=== PATIENT | male | born 1940 | race Caucasian/White ===

== ENCOUNTER 2021-09-24 08:40 | Emergency (ER) | payer MEDICARE, SELFPAY ==
[2021-09-24 08:50] VITALS: BP 156/94; PULSE 89; RESP 19; TEMP 36.1; BMI 29.4
[2021-09-24] MEDS: Oxymetazoline HCl 0.05 % Nasal 15 ML SPRAY 2 SPRAY NOSTRIL-B (09:18)
[2021-09-24] MEDS: Tranexamic Acid 1,000 MG in 0.9 % Sodium Chloride 250 ML 32.5 MG IV (09:19)
--- NOTE | 2021-09-24 09:21 | PC.NURSE ---
txa for nose bleed use by mago laura
--- NOTE | 2021-09-24 09:29 | ED.EPISTAXIS ---
History of Present Illness General Chief Complaint: Epistaxis Stated Complaint: Epistaxis Time Seen by Provider: 09/24/21 09:06 Source: patient Mode of arrival: ambulatory Limitations: no limitations History of Present Illness HPI Narrative: 81-year-old male on blood thinners/Eliquis presents to ED for nose bleed. Patient states this morning woke up and sneezed and it started bleeding from his left nares. Patient had another nosebleed earlier in the week that resolved on its own. Patient denies any recent head trauma, headache, rectal bleeding, coughing up blood, vomiting blood. Patient states his room is very humid Location: Yes left naris Related Data Allergies Allergy/AdvReac Type Severity Reaction Status Date / Time No Known Allergies Allergy Unverified 07/16/20 14:33 [No Known Allergies*] Review of Systems Review of Systems: Yes all other systems are reviewed and are negative Constitutional: Constitutional: Reports as per HPI and Reports no additional constitutional complaints Eyes: Eyes: Reports as per HPI and Reports no additional eye complaints ENT: Reports system reviewed and no additional complaints, except as documented, Reports as per HPI and Reports epistaxis (Left nares) Cardiovascular: Cardiovascular: Reports as per HPI and Reports no additional cardiovascular complaints Respiratory: Respiratory: Reports as per HPI and Reports no additional respiratory complaints Gastrointestinal: Gastrointestinal: Reports as per HPI and Reports no additional gastrointestinal complaints Musculoskeletal: Musculoskeletal: Reports no additional musculoskeletal complaints and Reports as per HPI Integumentary/Breasts: Skin/Breast: Reports system reviewed and no additional complaints, except as docu and Reports as per HPI Psychiatric: Psychiatric: Reports no additional psychiatric complaints [facility] Past Medical History Medical History (Updated 09/24/21 @ 11:24 by RITA Howard) Diabetes Surgical History (Updated 09/24/21 @ 08:52 by Onofre Muse) H/O heart artery stent Social History Social History Alcohol intake: never Smoked in Last 30 Days: No Use of substances other than those prescribed or required for medical reasons: No Advance Directives: Yes Advance Directives Information Provided: Yes Advance Directives on File: No Physical Exam Vital Signs: Vital Signs: Last Vital Signs Temp 97 F 09/24/21 08:50 Pulse 89 09/24/21 08:50 Resp 19 09/24/21 08:50 BP 156/94 H 09/24/21 08:50 Body Mass Index 29.4 Const: General: cooperative, healthy appearing, comfortable, no acute distress, well developed, alert, awake and Physically active Orientation/consciousness: patient oriented x3 HENMT: Head: Yes normal to inspection, Yes No palpable skull fracture present, Yes normocephalic and Yes atraumatic Ears: hearing grossly normal bilaterally and external ears normal General nose exam: Epistaxis present on the left Eyes: General: appearance normal, both eyes and all related structures Neck: Neck: Yes normal visual inspection, Yes full ROM, Yes no lymphadenopathy, Yes no meningeal signs, Yes trachea midline, Yes supple, No anterior neck swelling and No tender Chest: Chest palpation & inspection: normal inspection of the chest and normal palpation of entire chest wall Resp: Effort & Inspection: normal respiratory effort and able to speak in complete sentences Auscultation: clear to auscultation bilaterally Cardio: Jugular venous distension: no JVD Heart sounds: S1 normal heart sound present and S2 normal heart sound present GI: Inspection: Yes normal to inspection and No abdominal wall ecchymosis Palpation (GI): Soft to palpation, not firm, nontender, no guarding and not rigid : General: No CVA tenderness and Yes no CVA tenderness Back/Spine/Pelvis: Back: no CVA tenderness, No CVA tenderness and No back tenderness Skin: General skin exam: no rashes or lesions noted and elasticity normal Neuro: General: patient oriented x3, gait normal, no meningeal signs and CN's II-XI intact bilaterally Cranial nerves: Yes CN's II-XII intact bilaterally Extrem: General: Yes normal to inspection and Yes full ROM Psych: Appearance: grossly normal, well kempt and not disheveled Course Course Course Narrative: Bleeding only from left neck. Patient blew nose. Three Afrin sprays into left neck. Tranexmic acid sprayed into nares and placed in gauzed and than placed in nare. Reevaluation(s) Reevaluation #1: Patient's blood work came back normal. After initial treatment with Afrin and also Tranexamic Acid spread into nose and placing gauze into nares patient still had some bleeding with some slight blood going back of throat. 30 minute there was no improvement. Dr. Wise came evaluated and use silver nitrate for anterior bleeding. After evaluation patient was still bleeding and other Tranexamic was placed as recommend by Dr. Wise. On re-evaluation patient no longer has bleeding and patient would like to be discharged and no longer wants to wait to see if bleeding will come back. Patient given Afrin bottle from the ED to spray twice a day to nares. Time: 11:22 MDM - Epistaxis MDM Narrative Medical decision making narrative: Epistaxis Lab Data Result diagrams: 09/24/21 10:00 09/24/21 10:00 Labs: Lab Results 09/24/21 09/24/21 09/24/21 Range/Units 10:00 10:00 10:00 WBC 13.4 H (4.8-10.8) X10*3/uL RBC 4.96 (4.60-5.80) X10*6/uL Hgb 14.5 (14.0-18.0) g/dl Hct 44.0 (42.0-52.0) % MCV 88.7 (80.0-98.0) fL MCH 29.2 (27.0-33.0) pg MCHC 33.0 (31.0-36.0) g/dl RDW 13.3 (11.0-16.0) % Plt Count 226 (160-400) X10*3/uL MPV 11.0 (9.4-12.4) fL Immature Gran % (Auto) 0.8 H (0.0-0.4) % Neut % (Auto) 76.4 H (45-73) % Lymph % (Auto) 12.0 L (20-40) % [place] % (Auto) 9.3 (2-11) % Eos % (Auto) 0.8 (0-4) % Baso % (Auto) 0.7 (0-2) % Lymph # (Auto) 1.6 (1.2-4.9) X10*3/uL [place] # (Auto) 1.3 H (0.1-1.2) X10*3/uL Eos # (Auto) 0.1 (0.0-0.4) X10*3/uL Baso # (Auto) 0.1 (0.0-0.2) X10*3/uL Abs Immat Gran (auto) 0.11 H (0.00-0.03) X10*3/uL Absolute Neuts (auto) 10.3 H (2.0-8.3) x10*3/uL Absolute Nucleated RBC 0.000 (0.0-0.012) X10*3/uL Nucleated RBC % (auto) 0.0 (0.0-0.2) /100WBC PT 13.6 H (9.9-13.0) SEC INR 1.2 H (0.9-1.1) APTT 35.7 (24.1-38.0) SEC Sodium 134 L (135-145) mmol/L Potassium 4.6 (3.3-5.1) mmol/L Chloride 102 (96-108) mmol/L Carbon Dioxide 22 (22-29) mmol/L Anion Gap 15 (12-20) BUN 24 H (9-16) mg/dL Creatinine 1.10 (0.5-1.4) mg/dL Estim Creat Clear Calc 60.3 Estimated GFR > 60 Random Glucose 182 H (60-115) mg/dL Calcium 9.6 (8.4-10.2) mg/dL Total Bilirubin 0.3 (0.0-1.0) mg/dL AST 17 (5-37) U/L ALT 24 (0-40) U/L Alkaline Phosphatase 75 (39-117) U/L Total Protein 6.6 (6.5-8.0) g/dL Albumin 4.0 (3.5-5.0) g/dL Discharge Plan Discharge Clinical Impression: Epistaxis Patient Disposition: Home, Self-Care Instructions: Nosebleed (ED) Additional Instructions: [place] Afrin ( bottle given by You in the ED) twice a day into left nare. Do not sneeze. Please follow-up with your primary care provider. Return to ED immediately if bleeding occurs, shortness of breath, weakness, dizziness, or any other concerning symptoms. labs came back normal. Referrals: Rommel Figueroa MD [Primary Care Provider] - 2 days (Left epistaxis) Canelo Quiñonez [Physician] - 2 days (Resolved epistaxis.) Discharge Date/Time: 09/24/21 11:36 Print Language: Tamazight
[2021-09-24 10:06] LABS: Basophils Absolute Auto 0.1 X10*3/uL (0.0-0.2); Basophils Percent Auto 0.7 % (0-2); Eosinophils Absolute Auto 0.1 X10*3/uL (0.0-0.4); Eosinophils Percent Auto 0.8 % (0-4); Hemoglobin 14.5 g/dl (14.0-18.0); Imm Gran Abs Auto 0.11 X10*3/uL (0.00-0.03); Imm Gran Pct Auto 0.8 % (0.0-0.4); Lymphocytes Absolute Auto 1.6 X10*3/uL (1.2-4.9); Mean Corpuscular Hemoglobin 29.2 pg (27.0-33.0); Mean Corpuscular Volume 88.7 fL (80.0-98.0); Monocytes Absolute Auto 1.3 X10*3/uL (0.1-1.2); Monocytes Percent Auto 9.3 % (2-11); Neutrophils Absolute Auto 10.3 x10*3/uL (2.0-8.3); Neutrophils Percent Auto 76.4 % (45-73); Platelet Count 226 X10*3/uL (160-400); Red Blood Count 4.96 X10*6/uL (4.60-5.80); Red Cell Distribution Width 13.3 % (11.0-16.0); White Blood Count 13.4 X10*3/uL (4.8-10.8)
[2021-09-24 10:07] LABS: MANUAL DIFF FLAG NO
[2021-09-24 10:12] LABS: INTERNATIONAL NORM RATIO 1.2 (0.9-1.1); Prothrombin Time 13.6 SEC (9.9-13.0)
[2021-09-24 10:15] LABS: Partial Thromboplastin Time 35.7 SEC (24.1-38.0)
[2021-09-24] MEDS: Silver Nitrate Applicator STICK..EA. 1 APPL TOPICAL ×2 (10:28)
[2021-09-24 10:31] LABS: Alanine Aminotransferase 24 U/L (0-40); Alkaline Phosphatase 75 U/L (39-117); Anion Gap 15 (12-20); Aspartate Amino Transferase 17 U/L (5-37); Bilirubin Total 0.3 mg/dL (0.0-1.0); Blood Urea Nitrogen 24 mg/dL (9-16); Calcium 9.6 mg/dL (8.4-10.2); Carbon Dioxide 22 mmol/L (22-29); Chloride 102 mmol/L (96-108); Creatinine Clr Calc Pharmacy 60.3; Estimated Glomerular Filt Rate > 60; Glucose Random 182 mg/dL (60-115); Potassium 4.6 mmol/L (3.3-5.1); Sodium 134 mmol/L (135-145); Total Protein 6.6 g/dL (6.5-8.0)
== END 2021-09-24 11:36 | disposition home or self-care (01) ==
PROVIDERS: Physician Assistant; Emergency Provider Emergency Medicine; PCP Family Medicine
DX: R04.0 Epistaxis (principal); E11.9 Type 2 diabetes mellitus without complications
CPT/HCPCS: 30901; 36415; 80053; 85025; 85610; 85730; 99284

== ENCOUNTER 2022-01-02 05:22 | Emergency (ER) | payer MEDICARE, SELFPAY ==
--- NOTE | ~2022-01-02 | XR_ITS ---
EXAMINATION: XR SHOULDER, LEFT CLINICAL INFORMATION: Atraumatic pain COMPARISON: None TECHNIQUE: Four views of the left shoulder. FINDINGS: Glenohumeral alignment is anatomic with mild degenerative change. No acute fracture is seen. The acromioclavicular joint is intact with mild degenerative change. XR/XR shoulder LT min 2V IMPRESSION: Mild degenerative changes without acute findings.
[2022-01-02 05:26] VITALS: BP 153/78; PULSE 80; RESP 16; TEMP 36.4; BMI 29.4
[2022-01-02] MEDS: Oxymetazoline HCl 0.05 % Nasal 15 ML SPRAY 2 SPRAY NOSTRIL-B (05:36)
[2022-01-02 05:56] VITALS: PULSE 80; O2SAT 98
--- NOTE | 2022-01-02 05:56 | PC.NURSE ---
Assumed care of pt Pt states intermittent nosebleed since last . Pt was given a salve by ENT to keep nasal passage moist. Per pt, nosebleed started yesterday but did not stop when pt applied the salve. Pt currently still having active nosebleed on LT nare. Slow bleed. Pt medicated per DEC. Pressure applied. No bleeding noted at this time Will continue to monitor
--- NOTE | 2022-01-02 06:02 | ED.EPISTAXIS ---
History of Present Illness General Chief Complaint: Epistaxis Stated Complaint: Nose Bleed Time Seen by Provider: 01/02/22 05:27 Source: patient Mode of arrival: ambulatory History of Present Illness HPI Narrative: 81-year-old male who presents with epistaxis that started yesterday at approximately 15:00. Patient is on Eliquis for atrial fibrillation and also describes left arm and shoulder pain. Related Data Allergies Allergy/AdvReac Type Severity Reaction Status Date / Time No Known Allergies Allergy Unverified 07/16/20 14:33 [No Known Allergies*] Review of Systems Review of Systems: Pertinent positives and negatives as stated in HPI 10 point review of systems is otherwise negative. PMFSH Past Medical History Source: nursing notes reviewed Medical History Diabetes Surgical History H/O heart artery stent Social History Social History Alcohol intake: never Advance Directives: No Physical Exam Vital Signs: Vital Signs: Last Vital Signs Temp 97.5 F 01/02/22 05:26 Pulse 80 01/02/22 05:56 Resp 16 01/02/22 05:26 BP 153/78 H 01/02/22 05:26 Pulse Ox 98 01/02/22 05:56 BMI result Body Mass Index 29.4 VITAL SIGNS: Reviewed. GENERAL: Well developed, well nourished, in no acute distress. HEAD: Normocephalic/atraumatic EYES: PERRLA, EOMI EARS: Ext canals without abnormality NOSE: Nares patent bilateral, but stigmata of bleeding in the left nostril OROPHARYNX: no oral lesions noted, posterior pharynx clear LUNGS: Normal breath sounds. No adventitious sounds or accessory muscle use. SpO2<98> CARDIOVASCULAR: Regular rate and rhythm without noted murmurs ABDOMEN: Soft, non-tender, non-distended with bowel sounds. NEUROLOGIC: Alert and oriented x 4. Strength and sensation to light touch were grossly intact x 4. Course Course Course Narrative: 81-year-old male with history and clinical presentation consistent with epistaxis. Patient states he has been using the humidifier but has limited the salve that was provided by ENT only when he gets nose bleeds. I discussed with the patient that he needs to use the salve every day and that he can only use the Afrin for acute bleeds. Will obtain x-ray of left shoulder and provide patient with medication. X-ray negative for acute findings other than arthritis. On re-evaluation patient's epistaxis has stopped, no rhino rocket placed. Discharge Plan Discharge Clinical Impression: Epistaxis Patient Disposition: Home, Self-Care Instructions: Nosebleed (ED) Additional Instructions: 1. Recommend that you use the self every day to moisten your nasal mucosa. Please follow the recommendations from your ENT doctor. 2. You have been provided with the nasal spray which should only be used for sudden nose bleeds. You will treat this with 2 sprays and then holding pressure for 5 minutes and then reassess. If your nose continues to bleed then use an additional 2 sprays and hold pressure for another 5 minutes. If this does not help then you should come back to the emergency room. 3. Follow-up with your primary care provider and/or ENT specialist. Return to the ER for worsening symptoms. Referrals: Rommel Figueroa MD [Primary Care Provider] - 2 days
[2022-01-02] MEDS: Lidocaine 4 % Patch ADH..PATCH 1 PATCH TRANSDERMA (06:20)
== END 2022-01-02 07:19 | disposition home or self-care (01) ==
PROVIDERS: Emergency Provider Student in an Organized Health Care Education/Training Program; PCP Family Medicine
DX: R04.0 Epistaxis (principal); I48.91 Unspecified atrial fibrillation; M25.512 Pain in left shoulder; Z79.01 Long term (current) use of anticoagulants
CPT/HCPCS: 73030; 99283

== ENCOUNTER 2023-11-23 08:38 | Outpatient (AMB) | payer MEDICARE, SELFPAY ==
--- OUTSIDE RECORDS SUMMARY | 2023-11-23 08:40 | XMS_ITS | Continuity of Care Document ---
Author Name Unknown Organization [facility] [place] Address [address] [place] [address]- Care Team Providers Care Rodbuster Name Role Phone Carolina LEIVA, Rommel Doshi Primary Care Physician [phone] Encounter [facility] [place] Date(s): 06/08/21 - 07/08/21 [facility] Adult [address] [place] [address]- Attending Physician: AdmSaniya calle Admitting Physician: AdmtrSaniya Referring Physician: Admtr, Ar8 Allergies, Adverse Reactions, Alerts Substance Reaction Severity Status NKA Active Immunizations Given and Recorded Vaccine Date Status Refusal Reason SARS-CoV-2 (COVID-19) mRNA BNT-162b2 vac 01/29/21 Given SARS-CoV-2 (COVID-19) mRNA BNT-162b2 vac 01/08/21 Given influenza virus vaccine, inactivated 08/20/20 Give n pneumococcal 13-valent vaccine 1 08/03/18 Given tetanus/diphtheria/pertussis, acel(Tdap) 10/30/14 Recorded 1Result Comment: [08/03/2018] [facility] [id number] Medications acetaminophen 325 mg oral tablet 650 mg, By Mouth, Every 6 hours, May take OTC, follow directions on bottle, Refills 0, Maintenance,12/08/20 6:42:00 EST, Partial fill upon patient request if the prescription is for a schedule II opioid drug. Start Date: 12/08/20 Status: Ordered apixaban 2.5 mg oral tablet 1 tablet = 2.5 mg, By Mouth, 2 times a day, For the first 7 days post-op SAVAGE, 0 Refills, Maintenance, 06/23/21 12:45:00 EDT, Tablet, Partial fill upon patient request if the prescription is for a schedule II opioid drug. Start Date: 06/23/21 Status: Ordered Atorvastatin Tablet 80, mg, By Mouth, Daily at bedtime, 0, 2, 0, 2, 08/17/07 11:11:59, ADS OPPTHS, 144 Start Date: 08/17/07 Stop Date: 11/15/07 Status: Ordered Azopt 1% ophthalmic suspension 1 drops, Eyes, Both, 2 times a day, # 5 mL, 0 Refills, Maintenance, 12/07/20 5:44:00 EST, Suspension, Partial fill upon patient request if the prescription is for a schedule II opioid drug. Start Date: 12/07/20 Status: Ordered docusate sodium 100 mg oral capsule 100 mg, 1, capsule, By Mouth, 2 times a day, hold for loose stool, # 60 capsule, Refills 0, Tot. Refills 0, Maintenance, 12/08/20 6:44:00 EST, Route to Pharmacy Electronically, [facility], Partial fill upon patient request if the prescri... Start Date: 12/08/20 Stop Date: 01/07/21 Status: Ordered Eliquis 5 mg oral tablet 1 tablet = 5 mg, By Mouth, 2 times a day, # 60 tablet, 0 Refills, Maintenance, 05/03/18 13:46:16 EDT, Tablet Start Date: 05/03/18 Status: Ordered FREESTYLE LITE BLOOD GLUCOSE STRIPS FREESTYLE LITE BLOOD GLUCOSE STRIPS, See Instructions, # 200 Unknown, 0 Refills, Maintenance, USE DIRECTED TO TEST TWICE DAILY, 178, cm, 01/18/21 8:54:00 EDT, Height, 97.3, kg, 12/07/20 5:27:00 EST, Dry Weight Start Date: 02/03/21 Status: Ordered Freestyle Lite Lancets See Instructions, # 200 each, Refills 2, Tot. Refills 2, Maintenance, Test blood glucose twice daily, Dx: Type 2 DM, 03/30/21 12:51:00 EDT, Compound, 178, cm, 01/18/21 8:54:00 EDT, Height, 97.3, kg, 12/07/20 5:27:00 EST, Dry Weight Start Date: 03/30/21 Status: Ordered Freestyle Lite Monitor See Instructions, # 1 each, Maintenance, Monitor blood glucose twice daily Dx: Type 2 DM, 09/18/18 12:38:00 EST, Compound Start Date: 09/18/18 Status: Ordered Freestyle Lite Test Strips See Instructions, # 200 each, Refills 2, Tot. Refills 2, Maintenance, Monitor blood glucose twice daily, Dx: Type 2 DM, 10/14/19 16:37:30 EST, Compound, 178, cm, 04/18/19 7:00:17 EDT, Height Start Date: 10/14/19 Status: Ordered glipiZIDE 2.5 mg oral tablet, extended release See Instructions, TAKE 1 TABLET BY MOUTH DAILY WITH BREAKFAST, # 30 tablet, 2 Refills, Maintenance,[facility] #[id number], 178, cm, 06/08/21 8:06:00 EDT, Height, 97.3, kg, 12/07/20 5:27:00 EST,Dry Weight Start Date: 06/13/21 Status: Ordered hydrochlorothiazide 25 mg oral tablet 25 mg, 1, tablet, By Mouth, Daily, # 30 tablet, Refills 0, Maintenance, 02/01/18 13:19:27 EDT Start Date: 02/01/18 Status: Ordered lisinopril 20 mg oral tablet 20 mg, 1, tablet, By Mouth, Daily, # 90 tablet, Refills 1, Tot. Refills 1, Maintenance, 07/07/21 8:43:00 EDT, Route to Pharmacy Electronically, [facility] #[id number], Partial fill upon patient request if the prescription is for a schedule II opi... Start Date: 07/07/21 Status: Ordered Maalox Plus Liquid 30 mL, By Mouth, Every 4 hours, PRN Other, Heartburn, 0 Refills, Maintenance, 12/08/20 6:43:00 EST,Suspension, Partial fill upon patient request if the prescription is for a schedule II opioid drug. Start Date: 12/08/20 Status: Ordered metFORMIN 500 mg oral tablet 1 tablet = 500 mg, By Mouth, 2 times a day, # 180 tablet, 1 Refills, Maintenance, 04/24/21 11:53:00EDT, Tablet, [facility] #[id number], 178, cm, 01/18/21 8:54:00 EDT, Height, 97.3, kg, 215:27:00 EST, Dry Weight Start Date: 04/24/21 Status: Ordered MiraLax Powder 1 pack/packet = 17 Gm, By Mouth, Daily, PRN Constipation, 0 Refills, Maintenance, 12/08/20 6:45:00 EST, Powder, Partial fill upon patient request if the prescription is for a schedule II opioid drug. Start Date: 12/08/20 Status: Ordered MOM Liquid 30 mL, By Mouth, Daily, PRN Constipation, 0 Refills, Maintenance, 12/08/20 6:45:00 EST, Suspension,Partial fill upon patient request if the prescription is for a schedule II opioid drug. Start Date: 12/08/20 Status: Ordered Rhopressa 0.02% ophthalmic solution 1 drops, Eyes, Both, Daily in PM, # 2.5 mL, 0 Refills, Maintenance, 12/07/20 5:45:00 EST, Solution,Partial fill upon patient request if the prescription is for a schedule II opioid drug. Start Date: 12/07/20 Status: Ordered senna 187 mg oral tablet 1 tablet = 8.6 mg, By Mouth, Daily at bedtime, PRN as needed for constipation, 0 Refills, Maintenance, 06/23/21 12:45:00 EDT, Tablet, Partial fill upon patient request if the prescription is for a schedule II opioid drug. 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
--- OUTSIDE RECORDS SUMMARY | 2023-11-23 08:40 | XMS_ITS | Continuity of Care Document ---
Author Name Unknown Organization [facility] Address [address] [place] [address]- Care Team Providers Care Climate Change Risk Assessor Name Role Phone Rommel Figueroa MD Primary Care Physician [phone] Encounter [facility] [place] AC[facility] R [id number] Date(s): 11/02/20 - 11/09/20 [facility] Adult [address] [place] [address]- Attending Physician: Rommel Figueroa MD Allergies, Adverse Reactions, Alerts Substance Reaction Severity Status NKA Active Immunizations Given and Recorded Vaccine Date Status Refusal Reason influenza virus vaccine, inactivated 08/20/20 Give n pneumococcal 13-valent vaccine 1 08/03/18 Given tetanus/diphtheria/pertussis, acel(Tdap) 10/30/14 Recorded 1Result Comment: [08/03/2018] [facility] [id number] Medications Aspirin Tablet 81, mg, By Mouth, Daily, 0, 2, 0, 2, 08/17/07 11:12:02, ADS OPPTHS, [id number] Start Date: 08/17/07 Stop Date: 11/15/07 Status: Ordered Atorvastatin Tablet 80, mg, By Mouth, Daily at bedtime, 0, 2, 0, 2, 08/17/07 11:11:59, ADS OPPTHS, 144 Start Date: 08/17/07 Stop Date: 11/15/07 Status: Ordered Eliquis 5 mg oral tablet 1 tablet = 5 mg, By Mouth, 2 times a day, # 60 tablet, 0 Refills, Maintenance, 05/03/18 13:46:16 EDT, Tablet Start Date: 05/03/18 Status: Ordered Freestyle Lite Lancets See Instructions, # 200 each, Refills 2, Tot. Refills 2, Maintenance, Test blood glucose twice daily, Dx: Type 2 DM, 10/21/19 15:38:00 EST, Compound, 178, cm, 04/18/19 7:00:00 EDT, Height Start Date: 10/21/19 Status: Ordered Freestyle Lite Monitor See Instructions, [...] glipiZIDE 2.5 mg oral tablet, extended release 1 tablet = 2.5 mg, By Mouth, Daily, with breakfast, # 30 tablet, 2 Refills, Maintenance, 11/09/20 7:56:00 EST, ER Tablet, [facility] #[id number], 178, cm, 11/02/20 8:16:00 EST, Height Start Date: 11/09/20 Status: Ordered hydrochlorothiazide 25 mg oral tablet 25 mg, 1, tablet, By Mouth, Daily, # 30 tablet, Refills 0, Maintenance, 02/01/18 13:19:27 EDT Start Date: 02/01/18 Status: Ordered lisinopril 10 mg oral tablet 10 mg, 1, tablet, By Mouth, Daily, Refills 0, Maintenance, 11/15/16 17:09:25 Start Date: 11/15/16 Status: Ordered metFORMIN 500 mg oral tablet 1 tablet = 500 mg, By Mouth, 2 times a day, # 180 tablet, 3 Refills, Maintenance, 04/24/20 10:57:00EDT, Tablet, [facility] #[id number], 178, cm, 04/24/20 10:32:00 EDT, Height Start Date: 04/24/20 Status: Ordered Timolol 0.5% Ophth 1, drops, Eyes, Both, Daily, Refills 0, Maintenance, 11/15/16 17:09:47, Ophth Solution Start Date: 11/15/16 Status: Ordered Travatan Z 0.004% ophthalmic solution 1 drops, Eyes, Both, Daily at bedtime, 0 Refills, Maintenance, 11/15/16 17:10:42 Start Date: 11/15/16 Status: Ordered Problem List Condition Effective Dates Status Health Status Inform ant Atrial fibrillation(Confirmed) Active 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 Essential hypertension(Confirmed) Active Glaucoma(Confirmed) Active Mixed hyperlipidemia(Confirmed) Active OA (osteoarthritis) of hip, right(Confirmed) Active Diabetes mellitus type 2(Confirmed) Active Vital Signs Most recent to oldest [Reference Range]: 1 Height 178.00 cm (11/02/20 8:16 AM) Weight 101.4 kg (11/02/20 8:16 AM) Oxygen Saturation [94-100 %] 96 % (11/02/20 8:16 AM) Pulse Rate [55-90 bpm] 54 bpm *L* (11/02/20 8:16 AM) Body Mass Index [18.5-24.99] 32 *>HHI* (11/02/20 8:16 AM) Blood Pressure [90-138/55-84 mm Hg] 130/ 70mm Hg (11/02/20 8:16 AM) Temperature [96.8-100.4 DegF] 97.6 DegF (11/02/20 8:16 AM) Mode of Delivery (Oxygen) Room air (11/02/20 8:16 AM) Blood pressure sites Arm, left (11/02/20 8:16 AM) Temperature Route Oral (11/02/20 8:16 AM) Weight Obtained Via Standing scale (11/02/20 8:16 AM) Social History Social History Type Response Smoking Status Never smoker entered on: 11/15/16 Sex
--- OUTSIDE RECORDS SUMMARY | 2023-11-23 08:40 | XMS_ITS | Continuity of Care Document ---
Author Name Unknown Organization [facility] [place] Address [address] [place] [address]- Care Team Providers Care Advertising Display Rotator Name Role Phone Rommel Figueroa MD Primary Care Physician Encounter [facility] [place] Date(s): 07/30/19 - 11/27/19 [facility] Adult [address] [place] [address]- [facility] Attending Physician: Rommel Figueroa MD Allergies, Adverse Reactions, Alerts Substance Reaction Severity Status NKA Active Immunizations Given and Recorded Vaccine Date Status Refusal Reason pneumococcal 13-valent vaccine 1 08/03/18 Given tetanus/diphtheria/pertussis, acel(Tdap) 10/30/14 Recorded 1Result Comment: [08/03/2018] [facility] 0542-8372-75 Medications amLODIPine 5 mg oral tablet 5 mg, 1, tablet, By Mouth, Daily, # 30 tablet, Refills 5, Tot. Refills 5, Maintenance, 12/29/17 13:45:15, Route to Pharmacy Electronically, [id number], [facility] [id number] Start Date: 12/29/17 Status: Ordered Aspirin Tablet 81, mg, By Mouth, Daily, 0, 2, 0, 2, 08/17/07 11:12:02, ADS OPPTHS, [id number] Start Date: 08/17/07 Stop Date: 11/15/07 Status: [...] EDT, Height Start Date: 10/14/19 Status: Ordered hydrochlorothiazide 25 mg oral tablet 25 mg, 1, tablet, By Mouth, Daily, # 30 tablet, Refills 0, Maintenance, 02/01/18 13:19:27 EDT Start Date: 02/01/18 Status: Ordered lisinopril 10 mg oral tablet 10 mg, 1, tablet, By Mouth, Daily, Refills 0, Maintenance, 11/15/16 17:09:25 Start Date: 11/15/16 Status: Ordered metFORMIN 500 mg oral tablet 1 tablet = 500 mg, By Mouth, Daily at bedtime, # 30 tablet, 2 Refills, Soft Stop, 11/13/19 10:21:00EST, [id number], 178, cm, 10/28/19 7:17:00 EST, Height Start Date: 11/13/19 Status: Ordered Timolol 0.5% Ophth 1, drops, Eyes, Both, Daily, Refills 0, Maintenance, 11/15/16 17:09:47, Ophth Solution Start Date: 11/15/16 Status: Ordered Travatan Z 0.004% ophthalmic solution 1 drops, Eyes, Both, Daily at bedtime, 0 Refills, Maintenance, 11/15/16 17:10:42 Start Date: 11/15/16 Status: Ordered Problem List Condition Effective Dates Status Health Status Inform ant Atrial fibrillation(Confirmed) Active 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
--- OUTSIDE RECORDS SUMMARY | 2023-11-23 08:40 | XMS_ITS | Continuity of Care Document ---
Author Name Unknown Organization [facility] Sal[facility] [place] Address [address] [place] [address]- Care Team Providers Care Textile Machinery Instructor Name Role Phone Carolina LEIVA, Rommel Doshi Primary Care Physician [phone] [place] [facility] [place]/21 [facility] Adult [address] [place] [address]- Attending Physician: Rommel Figueroa MD Referring Physician: Niranjan Goodrich MD Allergies, Adverse Reactions, Alerts Substance Reaction Severity Status NKA Active Immunizations Given and Recorded Vaccine Date Status Refusal Reason SARS-CoV-2 (COVID-19) mRNA BNT-162b2 vac 01/29/21 Given SARS-CoV-2 (COVID-19) mRNA BNT-162b2 vac 01/08/21 Given influenza virus vaccine, inactivated 08/20/20 Give n pneumococcal 13-valent vaccine 1 08/03/18 Given tetanus/diphtheria/pertussis, acel(Tdap) 10/30/14 Recorded 1Result Comment: [08/03/2018] [facility] 7438-2653-33 Medications acetaminophen 325 mg oral tablet 650 [...] 12/08/20 6:44:00 EST, Route to Pharmacy Electronically, [facility], Partial fill upon patient request if the [...] WITH BREAKFAST, # 30 tablet, 2 Refills, Maintenance,[facility] #[id number], 178, cm, 06/08/21 8:06:00 EDT, Height, 97.3, kg, 12/07/20 5:27:00 EST,Dry Weight Start Date: 06/13/21 Status: Ordered hydrochlorothiazide 25 mg oral tablet 25 mg, 1, tablet, By Mouth, Daily, # 30 tablet, Refills 0, Maintenance, 02/01/18 13:19:27 EDT Start Date: 02/01/18 Status: Ordered lisinopril 20 mg oral tablet 20 mg, 1, tablet, By Mouth, Daily, # 90 tablet, Refills 0, Tot. Refills 0, Maintenance, 05/11/21 7:55:00 EDT, Do Not Route, Partial fill upon patient request if the prescription is for a schedule II opioid drug. 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
--- OUTSIDE RECORDS SUMMARY | 2023-11-23 08:40 | XMS_ITS | Continuity of Care Document ---
Author Name Unknown Organization [facility] Sal[facility] [place] Address [address] [place] [address]- Care Team Providers Care Mis Specialist Name Role Phone Carolina LEIVA, Rommel Doshi Primary Care Physician Encounter [facility] [place] Date(s): 11/26/20 - 12/26/20 [facility] Adult [address] [place] [address]- Attending Physician: AdmSaniya calle Admitting Physician: Admtr, Ar8 Referring Physician: Admtr, Ar8 Allergies, Adverse Reactions, Alerts Substance Reaction Severity Status NKA Active Immunizations Given and Recorded Vaccine Date Status Refusal Reason influenza virus vaccine, inactivated 08/20/20 Give n pneumococcal 13-valent vaccine 1 08/03/18 Given tetanus/diphtheria/pertussis, acel(Tdap) 10/30/14 Recorded 1Result Comment: [08/03/2018] [facility] [id number] Medications acetaminophen 325 mg oral tablet 650 mg, By Mouth, Every 6 hours, May take OTC, follow directions on bottle, Refills 0, Maintenance,12/08/20 6:42:00 EST, Partial fill upon patient request if the prescription is for a schedule II opioid drug. Start Date: 12/08/20 Status: Ordered Atorvastatin Tablet 80, mg, By [...] 12/08/20 6:44:00 EST, Route to Pharmacy Electronically, [facility], Partial fill upon patient request if the [...] Refills, Maintenance, 11/09/20 7:56:00 EST, ER Tablet, [facility][id number], 178, cm, 11/02/20 8:16:00 EST, Height Start Date: 11/09/20 Status: Ordered hydrochlorothiazide 25 mg oral tablet 25 mg, 1, tablet, By Mouth, Daily, # 30 tablet, Refills 0, Maintenance, 02/01/18 13:19:27 EDT Start Date: 02/01/18 Status: Ordered lisinopril 10 mg oral tablet 20 mg, 2, tablet, By Mouth, Daily, Refills 0, Maintenance, 11/15/16 17:09:25 EST Start Date: 11/15/16 Status: Ordered Maalox Plus Liquid 30 mL, [...] tablet, 3 Refills, Maintenance, 04/24/20 10:57:00EDT, Tablet, [facility][id number], 178, cm, 04/24/20 10:32:00 EDT, Height Start Date: 04/24/20 Status: Ordered MiraLax Powder 1 pack/packet = [...] opioid drug. Start Date: 12/08/20 Status: Ordered pantoprazole 40 mg oral delayed release tablet = 40 mg, By Mouth, Daily, 0 Refills, Maintenance, 12/08/20 6:45:00 EST, [facility] Tablet Start Date: 12/08/20 Status: Ordered Rhopressa 0.02% [...] as needed for constipation, 0 Refills, Maintenance, 12/08/20 6:45:00 EST, Tablet, Partial fill upon patient request if the prescription is for a schedule II opioid drug. Start Date: 12/08/20 Status: Ordered Timolol 0.5% Ophth 1, drops, Eyes, Both, Daily, Refills 0, Maintenance, 11/15/16 17:09:47, Ophth Solution Start Date: 11/15/16 Status: Ordered Travatan Z 0.004% ophthalmic solution 1 drops, Eyes, Both, Daily at bedtime, 0 Refills, Maintenance, 11/15/16 17:10:42 Start Date: 11/15/16 Status: Ordered warfarin 1 mg oral tablet See Instructions, Take 1-10 tablets by mouth daily as directed by HERMILA, # 150 tablet, 0 Refills, Maintenance, 12/08/20 6:47:00 EST, Tablet, [facility], Partial fill upon patient requestif the prescription is for a schedule II opioid nae... 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
--- OUTSIDE RECORDS SUMMARY | 2023-11-23 08:40 | XMS_ITS | Continuity of Care Document ---
Author Name Unknown Organization [facility] Sal[facility] [place] Address [address] [place] [address]- Care Team Providers Care Carpenter Cradle And Dolly Name Role Phone Rommel Figueroa MD Primary Care Physician [phone] Encounter [facility] [place] Date(s): 10/28/19 - 12/04/19 [facility] Adult [address] [place] [address]- [facility] Attending Physician: Rommel Figueroa MD Allergies, Adverse Reactions, Alerts Substance Reaction Severity Status NKA Active Immunizations Given and Recorded Vaccine Date Status Refusal Reason pneumococcal 13-valent vaccine 1 08/03/18 Given tetanus/diphtheria/pertussis, acel(Tdap) 10/30/14 Recorded 1Result Comment: [08/03/2018] [facility] 3058-4399-79 Medications amLODIPine 5 mg oral tablet 5 mg, 1, tablet, By Mouth, Daily, # 30 tablet, Refills 5, Tot. Refills 5, Maintenance, 12/29/17 13:45:15, Route to Pharmacy Electronically, [id number], [facility] [id number] Start Date: 12/29/17 Status: Ordered Aspirin Tablet 81, mg, By Mouth, Daily, 0, 2, 0, 2, 08/17/07 11:12:02, ADS OPPTHS, [id number] Start Date: 08/17/07 Stop Date: 11/15/07 Status: [...] tablet, 2 Refills, Soft Stop, 11/13/19 10:21:00EST, 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
--- OUTSIDE RECORDS SUMMARY | 2023-11-23 08:40 | XMS_ITS | Continuity of Care Document ---
Author Name Unknown Organization [facility] Salty [place] Address [address] [place] [address]- Care Team Providers Care Boat Wrapper Name Role Phone Carolina LEIVA, Rommel Doshi Primary Care Physician [place] [facility] [place]21 - 10/22/21 [facility] Adult [address] [place] [address]- Encounter Diagnosis Epistaxis(Discharge Diagnosis) - 10/17/21 Cough(Discharge Diagnosis) - 10/17/21 Attending Physician: Kassidy Phillip NP Allergies, Adverse Reactions, Alerts Substance Reaction Severity Status NKA Active Immunizations Given and Recorded Vaccine Date Status Refusal Reason SARS-CoV-2 (COVID-19) mRNA BNT-162b2 vac 01/29/21 Given SARS-CoV-2 (COVID-19) mRNA BNT-162b2 vac 01/08/21 Given influenza virus vaccine, inactivated 08/20/20 Give n pneumococcal 13-valent vaccine 1 08/03/18 Given tetanus/diphtheria/pertussis, acel(Tdap) 10/30/14 Recorded 1Result Comment: [08/03/2018] [facility] 5970-8035-46 Medications acetaminophen 325 mg oral tablet 650 [...] 12/08/20 6:44:00 EST, Route to Pharmacy Electronically, [facility], Partial fill upon patient request if the prescri... Start Date: 12/08/20 Stop Date: 01/07/21 Status: Ordered Eliquis 5 mg oral tablet 1 tablet = 5 mg, By Mouth, 2 times a day, # 60 tablet, 0 Refills, Maintenance, 05/03/18 13:46:16 EDT, Tablet Start Date: 05/03/18 Status: Ordered FREESTYLE LITE BLOOD GLUCOSE STRIPS FREESTYLE LITE BLOOD GLUCOSE STRIPS, See Instructions, # 200 Unknown, 1 Refills, USE DIRECTED TOTEST TWICE DAILY, 175.2, cm, 06/24/21 7:36:00 EDT, Height, 96.2, kg, 06/22/21 5:33:00 EDT, Dry Weight Start Date: 08/12/21 Status: Ordered FREESTYLE LITE BLOOD GLUCOSE STRIPS [...] MOUTH DAILY WITH BREAKFAST, # 30 tablet, 5 Refills, [facility][id number], 175.2, cm, 06/24/21 7:36:00 EDT, Height, 96.2, kg, 06/22/21 5:33:00 EDT, Dry Weight Start Date: 09/13/21 Status: Ordered hydrochlorothiazide 25 mg oral tablet 25 mg, 1, tablet, By Mouth, Daily, # 30 tablet, Refills 2, Tot. Refills 2, Maintenance, 09/06/21 4:56:00 EST, Route to Pharmacy Electronically, [facility][id number], Partial fill upon patient request if the prescription is for a schedule II opi... Start Date: 09/06/21 Status: Ordered lisinopril 20 mg oral tablet 20 mg, 1, tablet, By Mouth, Daily, # 90 tablet, Refills 1, Tot. 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
--- OUTSIDE RECORDS SUMMARY | 2023-11-23 08:40 | XMS_ITS | Continuity of Care Document ---
Author Name Unknown Organization [facility] Salty [place] Address [address] [place] [address]- Care Team Providers Care Broadcast Meteorologist Name Role Phone Carolina LEIVA, Rommel Doshi Primary Care Physician [phone] Encounter [facility] [place] Date(s): 10/28/19 - 11/04/19 [facility] Adult [address] [place] [address]- [facility] Encounter Diagnosis Atrial fibrillation(Discharge Diagnosis) - 10/28/19 Essential hypertension(Discharge Diagnosis) - 10/28/19 Mixed hyperlipidemia(Discharge Diagnosis) - 10/28/19 Uncontrolled type 2 diabetes mellitus(Discharge Diagnosis) - 10/28/19 Atherosclerotic heart disease of [place] coronary artery without angina pectoris (Discharge Diagnosis) - 10/28/19 Glaucoma(Discharge Diagnosis) - 10/28/19 Medicare annual wellness visit, initial(Discharge Diagnosis) - 10/28/19 Erectile dysfunction(Discharge Diagnosis) - 10/29/19 Attending Physician: Kassidy Phillip NP Referring Physician: Rommel Figueroa MD Allergies, Adverse Reactions, Alerts Substance Reaction Severity Status NKA Active Immunizations Given and Recorded Vaccine Date Status Refusal Reason pneumococcal 13-valent vaccine 1 08/03/18 Given tetanus/diphtheria/pertussis, acel(Tdap) 10/30/14 Recorded 1Result Comment: [08/03/2018] [facility] 8309-1459-68 Medications amLODIPine 5 mg oral tablet 5 mg, 1, tablet, By Mouth, Daily, # 30 tablet, Refills 5, Tot. Refills 5, Maintenance, 12/29/17 13:45:15, Route to Pharmacy Electronically, [id number], [facility] Start Date: 12/29/17 Status: Ordered Aspirin Tablet 81, mg, By Mouth, Daily, 0, 2, 0, 2, 08/17/07 11:12:02, ADS [facility], 1.29689b+[id number] Start Date: 08/17/07 Stop Date: 11/15/07 Status: Ordered Atorvastatin Tablet 80, mg, By Mouth, Daily at bedtime, 0, 2, 0, 2, 08/17/07 11:11:59, ADS [facility], 144 Start Date: 08/17/07 Stop Date: 11/15/07 [...] Mouth, Daily at bedtime, # 30 tablet, 1 Refills, Soft Stop, 09/12/19 16:02:19EST Start Date: 09/12/19 Status: Ordered Timolol 0.5% Ophth 1, drops, Eyes, Both, Daily, Refills 0, Maintenance, 11/15/16 17:09:47, Ophth Solution Start Date: 11/15/16 Status: Ordered Travatan Z 0.004% ophthalmic solution 1 drops, Eyes, Both, Daily at bedtime, 0 Refills, Maintenance, 11/15/16 17:10:42 Start Date: 11/15/16 Status: Ordered Problem List Condition Effective Dates Status Health Status Inform ant Atrial fibrillation(Confirmed) Active 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 Essential hypertension(Confirmed) Active Glaucoma(Confirmed) Active Mixed hyperlipidemia(Confirmed) Active Uncontrolled type 2 diabetes mellitus(Confirmed) Active Diagnosis Diagnosis Type Effective Dates Health Status Clinical Service Informant Atrial fibrillation Discharge Diagnosis 10/28/19 Essential hypertension Discharge Diagnosis 10/28/19 Mixed hyperlipidemia Discharge Diagnosis 10/28/19 Uncontrolled type 2 diabetes mellitus Discharge Diagnosis 10/28/19 Atherosclerotic heart disease of [place] coronary artery without angina pectoris Discharge Diagnosis 10/28/19 Glaucoma Discharge Diagnosis 10/28/19 Medicare annual wellness visit, initial Discharge Diagnosis 10/28/19 Erectile dysfunction Discharge Diagnosis 10/29/19 Vital Signs Most recent to oldest [Reference Range]: 1 Height 178.00 cm (10/28/19 7:17 AM) Weight 97.3 kg (10/28/19 7:17 AM) Oxygen Saturation [94-100 %] 98 % (10/28/19 7:17 AM) Pulse Rate [55-90 bpm] 74 bpm (10/28/19 7:17 AM) Body Mass Index [18.5-24.99] 30.71 *>HHI* (10/28/19 7:17 AM) Blood Pressure [90-138/55-84 mm Hg] 150/ 102mm Hg *H* (10/28/19 7:17 AM) Blood pressure sites Arm, left (10/28/19 7:17 AM) Weight Obtained Via Standing scale (10/28/19 7:17 AM) Social History Social History Type Response Smoking Status Never smoker entered on: 11/15/16 Sex
--- OUTSIDE RECORDS SUMMARY | 2023-11-23 08:40 | XMS_ITS | Continuity of Care Document ---
Author Name Unknown Organization [facility] Salty [place] Address [address] [place] [address]- Care Team Providers Care Cpr Instructor Name Role Phone Carolina LEIVA, Rommel Doshi Primary Care Physician Encounter [facility] [place] Date(s): 01/14/21 - 02/13/21 [facility] Adult [address] [place] [address]- Allergies, Adverse Reactions, Alerts Substance Reaction Severity Status NKA Active Immunizations Given and Recorded Vaccine Date Status Refusal Reason SARS-CoV-2 (COVID-19) mRNA BNT-162b2 vac 01/29/21 Given SARS-CoV-2 (COVID-19) mRNA BNT-162b2 vac 01/08/21 Given influenza virus vaccine, inactivated 08/20/20 Give n pneumococcal 13-valent vaccine 1 08/03/18 Given tetanus/diphtheria/pertussis, acel(Tdap) 10/30/14 Recorded 1Result Comment: [08/03/2018] [facility] [id number] Medications acetaminophen 325 mg oral tablet 650 [...] 12/08/20 6:44:00 EST, Route to Pharmacy Electronically, [facility], Partial fill upon patient request if [...] breakfast, # 30 tablet, 2 Refills, Maintenance, 01/12/21 16:30:00 EDT, ER Tablet, [facility]07771, 178, cm, 12/08/20 7:50:00 EST, Height, 97.3, kg, 12/07/20 5:27:00 EST, Dry Weight Start Date: 01/12/21 Status: Ordered hydrochlorothiazide 25 mg oral tablet [...] tablet, 3 Refills, Maintenance, 04/24/20 10:57:00EDT, Tablet, [facility]34059, 178, cm, 04/24/20 10:32:00 EDT, Height Start [...] 0 Refills, Maintenance, 12/08/20 6:47:00 EST, Tablet, [facility], Partial fill upon patient requestif the prescription is for a schedule II opioid nae... 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
--- OUTSIDE RECORDS SUMMARY | 2023-11-23 08:40 | XMS_ITS | Continuity of Care Document ---
Author Name Unknown Organization [facility] Salty [place] Address [address] [place] [address]- Care Team Providers Care Channel Program Manager Name Role Phone Rommel Figueroa MD Primary Care Physician [phone] Encounter [id number] Date(s): 06/08/21 - 06/15/21 [facility] Adult [address] [place] [address]- Attending Physician: Rommel Figueroa MD Allergies, Adverse Reactions, Alerts Substance Reaction Severity Status NKA Active Immunizations Given and Recorded Vaccine Date Status Refusal Reason SARS-CoV-2 (COVID-19) mRNA BNT-162b2 vac 01/29/21 Given SARS-CoV-2 (COVID-19) mRNA BNT-162b2 vac 01/08/21 Given influenza virus vaccine, inactivated 08/20/20 Give n pneumococcal 13-valent vaccine 1 08/03/18 Given tetanus/diphtheria/pertussis, acel(Tdap) 10/30/14 Recorded 1Result Comment: [08/03/2018] [facility] [id number] Medications acetaminophen 325 mg oral tablet 650 [...] 12/08/20 6:44:00 EST, Route to Pharmacy Electronically, [facility], Partial fill upon patient request if [...] WITH BREAKFAST, # 30 tablet, 2 Refills, Maintenance,[facility]62[facility], 178, cm, 06/08/21 8:06:00 EDT, Height, 97.3, [...] tablet, 1 Refills, Maintenance, 04/24/21 11:53:00EDT, Tablet, [facility]20809, 178, cm, 01/18/21 8:54:00 EDT, Height, 97.3, kg, :27:00 EST, Dry Weight Start Date: 04/24/21 Status: [...] opioid drug. 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 Essential hypertension(Confirmed) Active Glaucoma(Confirmed) Active Mixed hyperlipidemia(Confirmed) Active OA (osteoarthritis) of hip, right(Confirmed) Active Diabetes mellitus type 2(Confirmed) Active Vital Signs Most recent to oldest [Reference Range]: 1 Height 178 cm (06/08/21 8:06 AM) Weight 99.5 kg (06/08/21 8:06 AM) Oxygen Saturation [94-100 %] 97 % (06/08/21 8:06 AM) Pulse Rate [55-90 bpm] 62 bpm (06/08/21 8:06 AM) Body Mass Index [18.5-24.99] 31.4 *>HHI* (06/08/21 8:06 AM) Blood Pressure [90-138/55-84 mm Hg] 118/ 80mm Hg (06/08/21 8:06 AM) Temperature [96.8-100.4 DegF] 97.7 DegF (06/08/21 8:06 AM) Mode of Delivery (Oxygen) Room air (06/08/21 8:06 AM) Blood pressure sites Arm, left (8/10/21 8:06 AM) Weight Obtained Via Standing scale (06/08/21 8:06 AM) Social History Social History Type Response Smoking Status Never (less than 100 in lifetime) entered on: 12/07/20 Sex
--- OUTSIDE RECORDS SUMMARY | 2023-11-23 08:40 | XMS_ITS | Continuity of Care Document ---
Author Name Unknown Organization [facility] [address] Address [address] [place] [address]- Care Team Providers Care Pinsetter Mechanic Automatic Name Role Phone Carolina LEIVA, Rommel Doshi Primary Care Physician [place] [facility] [place] 09/02/21 - 10/02/21 [facility] Adult [address] [place] [address]- Allergies, Adverse Reactions, Alerts Substance Reaction Severity Status NKA Active Immunizations Given and Recorded Vaccine Date Status Refusal Reason SARS-CoV-2 (COVID-19) mRNA BNT-162b2 vac 01/29/21 Given SARS-CoV-2 (COVID-19) mRNA BNT-162b2 vac 01/08/21 Given influenza virus vaccine, inactivated 08/20/20 Give n pneumococcal 13-valent vaccine 1 08/03/18 Given tetanus/diphtheria/pertussis, acel(Tdap) 10/30/14 Recorded 1Result Comment: [08/03/2018] [facility] [place] [id number] Medications acetaminophen 325 mg oral tablet 650 [...] 12/08/20 6:44:00 EST, Route to Pharmacy Electronically, [facility], Partial fill upon patient request [...] WITH BREAKFAST, # 30 tablet, 5 Refills, [facility] #[id number], 175.2, cm, 06/24/21 7:36:00 EDT, Height, 96.2, kg, 06/22/21 5:33:00 EDT, Dry Weight Start Date: 09/13/21 Status: Ordered hydrochlorothiazide 25 mg oral tablet 25 mg, 1, tablet, By Mouth, Daily, # 30 tablet, Refills 2, Tot. Refills 2, Maintenance, 09/06/21 4:56:00 EST, Route to Pharmacy Electronically, [facility] #[id number], Partial fill upon patient request if the prescription is for a schedule II opi... Start Date: 09/06/21 Status: Ordered lisinopril 20 mg oral tablet 20 mg, 1, tablet, By Mouth, Daily, # 90 tablet, Refills 1, Tot. 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
--- OUTSIDE RECORDS SUMMARY | 2023-11-23 08:40 | XMS_ITS | Continuity of Care Document ---
Author Name Unknown Organization [facility] [place] Address [address] [place] [address]- Care Team Providers Care Real Estate Loan Officer Name Role Phone Rommel Figueroa MD Primary Care Physician Encounter [facility] [place] Date(s): 12/13/21 - 12/20/21 [facility] Adult [address] [place] [address]- Attending Physician: Rommel Figueroa MD Allergies, Adverse Reactions, Alerts No Known Allergies Immunizations Given and Recorded Vaccine Date Status Refusal Reason influenza virus vaccine, inactivated 12/13/21 Give n influenza virus vaccine, inactivated 08/20/20 Give n SARS-CoV-2 (COVID-19) mRNA BNT-162b2 vac 09/28/21 Recorded SARS-CoV-2 (COVID-19) mRNA BNT-162b2 vac 01/29/21 Given SARS-CoV-2 (COVID-19) mRNA BNT-162b2 vac 01/08/21 Given pneumococcal 13-valent vaccine 1 08/03/18 Given tetanus/diphtheria/pertussis, acel(Tdap) 10/30/14 Recorded 1Result Comment: [08/03/2018] [facility] [place] [id number] Medications acetaminophen 325 mg oral tablet 650 [...] 12/08/20 6:44:00 EST, Route to Pharmacy Electronically, [facility], Partial fill upon patient request if the [...] WITH BREAKFAST, # 30 tablet, 5 Refills, [facility] #[id number], 175.2, cm, 06/24/21 7:36:00 EDT, Height, 96.2, kg, 06/22/21 5:33:00 EDT, Dry Weight Start Date: 09/13/21 Status: Ordered hydrochlorothiazide 25 mg oral tablet 1, tablet, By Mouth, Daily, # 90 tablet, Refills 3, Tot. Refills 3, 12/20/21 6:32:00 EST, Route to Pharmacy Electronically, [facility] #[id number], 175.2, cm, 12/13/21 14:13:00 EST, Height, 96.2, kg, 06/22/21 5:33:00 EDT, Dry Weight Start Date: 12/20/21 Status: Ordered lisinopril 20 mg oral tablet 20 mg, 1, tablet, By Mouth, Daily, # 90 tablet, Refills 3, Tot. Refills 3, Maintenance, 12/20/21 6:32:00 EST, Route to Pharmacy Electronically, [facility] #[id number], Partial fill upon patient request if the prescription is for a schedule II opi... Start Date: 12/20/21 Status: Ordered Maalox Plus Liquid 30 mL, By Mouth, Every 4 hours, PRN Other, Heartburn, 0 Refills, Maintenance, 12/08/20 6:43:00 EST,Suspension, Partial fill upon patient request if the prescription is for a schedule II opioid drug. 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 Cough(Confirmed) Active Essential hypertension(Confirmed) Active Glaucoma(Confirmed) Active Mixed hyperlipidemia(Confirmed) Active OA (osteoarthritis) of hip, right(Confirmed) Active Obese class I(Confirmed) Active Diabetes mellitus type 2(Confirmed) Active Vital Signs Most recent to oldest [Reference Range]: 1 2 3 Height 175.2 cm (12/13/21 2:13 PM) 175.2 cm (12/13/21 2:02 PM) 175.2 cm (12/13/21 1:47 PM) Weight 97.4 kg (12/13/21 1:47 PM) Oxygen Saturation [94-100 %] 100 % (12/13/21 1:47 PM) Pulse Rate [55-90 bpm] 57 bpm (12/13/21 1:47 PM) Body Mass Index [18.5-24.99] 31.73 *>HHI* (12/13/21 1:47 PM) Blood Pressure [90-138/55-84 mm Hg] 130/68mm Hg (12/13/21 2:13 PM) 151/79mm Hg *H* (12/13/21 2:02 PM) 150/81mm Hg *H* (12/13/21 1:47 PM) Blood pressure sites Arm, left (12/13/21 2:13 PM) Arm, left (12/13/21 1:47 PM) Weight Obtained Via Standing scale (12/13/21 1:47 PM) Social History Social History Type Response Smoking Status Never (less than 100 in lifetime) entered on: 12/07/20 Sex
--- OUTSIDE RECORDS SUMMARY | 2023-11-23 08:40 | XMS_ITS | Continuity of Care Document ---
Author Name Unknown Organization [facility] [place] Address [address] [place] [address]- Care Team Providers Care Excavating Machine Operator Name Role Phone Rommel Figueroa MD Primary Care Physician [phone] [place] [facility] [place]24[place]20 [facility] Adult [address] [place] [address]- [facility] Attending Physician: Rommel Figueroa MD Allergies, Adverse Reactions, Alerts Substance Reaction Severity Status NKA Active Immunizations Given and Recorded Vaccine Date Status Refusal Reason pneumococcal 13-valent vaccine 1 08/03/18 Given tetanus/diphtheria/pertussis, acel(Tdap) 10/30/14 Recorded 1Result Comment: [08/03/2018] [facility] [place] [id number] Medications Aspirin Tablet 81, mg, By Mouth, Daily, 0, 2, 0, 2, 08/17/07 11:12:02, ADS OPPTHS, [id number] Start Date: 08/17/07 Stop Date: 11/15/07 Status: [...] Mouth, Daily, with breakfast, # 30 tablet, 3 Refills, Maintenance, 04/24/20 10:57:00 EDT, ER Tablet, [facility] #[id number], 178, cm, 04/24/20 10:32:00 EDT, Height Start Date: 04/24/20 Status: Ordered hydrochlorothiazide 25 mg oral tablet [...] tablet, 3 Refills, Maintenance, 04/24/20 10:57:00EDT, Tablet, [facility] #[id number], 178, cm, 04/24/20 10:32:00 EDT, Height Start [...] fibrillation(Confirmed) Active 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 Essential hypertension(Confirmed) Active Glaucoma(Confirmed) Active Mixed hyperlipidemia(Confirmed) Active Uncontrolled type 2 diabetes mellitus(Confirmed) Active Vital Signs Most recent to oldest [Reference Range]: 1 Height 178.00 cm (04/17/20 10:18 AM) Weight 92.4 kg (04/17/20 10:18 AM) Oxygen Saturation [94-100 %] 97 % (04/17/20 10:18 AM) Pulse Rate [55-90 bpm] 62 bpm (04/17/20 10:18 AM) Body Mass Index [18.5-24.99] 29.16 *H* (04/17/20 10:18 AM) Blood Pressure [90-138/55-84 mm Hg] 122/ 78mm Hg (04/17/20 10:18 AM) Temperature [96.8-100.4 DegF] 97.3 DegF (04/17/20 10:18 AM) Mode of Delivery (Oxygen) Room air (04/17/20 10:18 AM) Blood pressure sites Arm, left (04/17/20 10:18 AM) Temperature Route Oral (04/17/20 10:18 AM) Weight Obtained Via Standing scale (04/17/20 10:18 AM) Social History Social History Type Response Smoking Status Never smoker entered on: 11/15/16 Sex
--- OUTSIDE RECORDS SUMMARY | 2023-11-23 08:40 | XMS_ITS | Continuity of Care Document ---
Author Name Unknown Organization [facility] Sal[facility] [place] Address [address] [place] [address]- Care Team Providers Care Bulk Folder Name Role Phone Carolina LEIVA, Rommel Doshi Primary Care Physician [phone] Encounter [facility] [place] Date(s): 11/04/19 - 11/14/19 [facility] Adult [address] [place] [address]- [facility] Attending Physician: Saniya Dai Admitting Physician: AdmtrSaniya Referring Physician: AdmtrSaniya Allergies, Adverse Reactions, Alerts Substance Reaction Severity Status NKA Active Immunizations Given and Recorded Vaccine Date Status Refusal Reason pneumococcal 13-valent vaccine 1 08/03/18 Given tetanus/diphtheria/pertussis, acel(Tdap) 10/30/14 Recorded 1Result Comment: [08/03/2018] [facility] [id number] Medications amLODIPine 5 mg oral tablet 5 mg, 1, tablet, By Mouth, Daily, # 30 tablet, Refills 5, Tot. 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
--- OUTSIDE RECORDS SUMMARY | 2023-11-23 08:40 | XMS_ITS | Continuity of Care Document ---
Author Name Unknown Organization [facility] ter Address [address] [place] [address]- Care Team Providers Care Solution Specialist Name Role Phone Carolina LEIVA, Rommel Doshi Primary Care Physician [phone] Encounter [facility] [place] Date(s): 04/15/20 - 05/15/[address] [address]- [facility] Attending Physician: Admtr, Ar8 Admitting Physician: Admtr, Ar8 Referring Physician: Admtr, Ar8 Allergies, Adverse Reactions, Alerts Substance Reaction Severity Status NKA Active Immunizations Given and Recorded Vaccine Date Status Refusal Reason pneumococcal 13-valent vaccine 1 08/03/18 Given tetanus/diphtheria/pertussis, acel(Tdap) 10/30/14 Recorded 1Result Comment: [08/03/2018] [facility] [id number] Medications Aspirin Tablet 81, mg, By Mouth, Daily, 0, 2, 0, 2, 08/17/07 11:12:02, ADS OPPTHS, [id number]+006 Start Date: 08/17/07 Stop Date: 11/15/07 Status: [...] Refills, Maintenance, 04/24/20 10:57:00 EDT, ER Tablet, [facility] #[id number], 178, cm, 04/24/20 10:32:00 EDT, Height Start [...] tablet, 3 Refills, Maintenance, 04/24/20 10:57:00EDT, Tablet, [facility] #[id number], 178, cm, 04/24/20 10:32:00 EDT, Height Start [...] fibrillation(Confirmed) Active 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
--- OUTSIDE RECORDS SUMMARY | 2023-11-23 08:40 | XMS_ITS | Continuity of Care Document ---
Author Name Unknown Organization [facility] ter Address [address] [place] [address]- Care Team Providers Care Enterprise Project Manager Name Role Phone Carolina LEIVA, Rommel Doshi Primary Care Physician [place] [facility] [place](s[place] 05/28/21 - 07/03/[address] [address]- Attending Physician: Niranjan Goodrich MD Admitting Physician: Niranjan Goodrich MD Referring Physician: Niranjan Goodrich MD Allergies, Adverse Reactions, Alerts Substance Reaction Severity Status NKA Active Immunizations Given and Recorded Vaccine Date Status Refusal Reason SARS-CoV-2 (COVID-19) mRNA BNT-162b2 vac 01/29/21 Given SARS-CoV-2 (COVID-19) mRNA BNT-162b2 vac 01/08/21 Given influenza virus vaccine, inactivated 08/20/20 Give n pneumococcal 13-valent vaccine 1 08/03/18 Given tetanus/diphtheria/pertussis, acel(Tdap) 10/30/14 Recorded 1Result Comment: [08/03/2018] [facility] [id number] Medications acetaminophen 325 mg oral tablet 650 [...] 6:44:00 EST, [facility] to [facility], Partial fill upon patient request if the [...] WITH BREAKFAST, # 30 tablet, 2 Refills, Maintenance,[facility] #[id number], 178, cm, 06/08/21 8:06:00 EDT, Height, 97.3, [...] tablet, 1 Refills, Maintenance, 04/24/21 11:53:00EDT, Tablet, [facility] #[id number], 178, cm, 01/18/21 8:54:00 EDT, Height, 97.3, [...] fibrillation(Confirmed) Active 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
--- OUTSIDE RECORDS SUMMARY | 2023-11-23 08:40 | XMS_ITS | Continuity of Care Document ---
Author Name Unknown Organization [facility] Sal[facility] Address [address] [place] [address]- Care Team Providers Care Sales Contractor Name Role Phone Carolina LEIVA, Rommel Doshi Primary Care Physician Encounter [facility] Date(s): 09/17/23 - 10/17/23 [facility] Adult [address] [place] [address]- Allergies, Adverse Reactions, Alerts No Known Allergies Immunizations Given and Recorded Vaccine Date Status Refusal Reason pneumococcal 23-valent vaccine 1 12/15/22 Given influenza virus vaccine, inactivated 09/27/22 Sharad rded influenza virus vaccine, inactivated 12/13/21 Give n influenza virus vaccine, inactivated 08/20/20 Give n [id number] 12y+ bivalent booster vax 09/27/22 Recorded SARS-CoV-2 mRNA ([id number]) vax 05/09/22 Recorded SARS-CoV-2 (COVID-19) mRNA BNT-162b2 vac 09/28/21 Recorded SARS-CoV-2 (COVID-19) mRNA BNT-162b2 vac 01/29/21 Given SARS-CoV-2 (COVID-19) mRNA BNT-162b2 vac 01/08/21 Given pneumococcal 13-valent vaccine 2 08/03/18 Given tetanus/diphtheria/pertussis, acel(Tdap) 10/30/14 Recorded 1Result Comment: [id number] 2Result Comment: [08/03/2018] [facility] 1210-1077-26 Medications acetaminophen 325 mg oral tablet 650 mg, By Mouth, Every 6 hours, May take OTC, follow directions on bottle, Refills 0, Maintenance,12/08/20 6:42:00 EST, Partial fill upon patient request if the prescription is for a schedule II opioid drug. Start Date: 12/08/20 Status: Ordered aspirin 81 mg oral delayed release tablet 81 mg, 1, tablet, By Mouth, Daily, # 30 tablet, Refills 0, Maintenance, 06/13/22 13:34:00 EDT, Partial fill upon patient request if the prescription is for a schedule II opioid drug. Start Date: 06/13/22 Status: Ordered atorvastatin 40 mg oral tablet 1 tablet = 40 mg, By Mouth, Daily, # 90 tablet, 3 Refills, Maintenance, 06/14/23 9:55:00 EDT, Tablet, [facility] #[id number], Partial fill upon patient request if the prescription is for a schedule II opioid drug., 175.2, cm, 06/14/23 9:43:00 EDT... Start Date: 06/14/23 Status: Ordered Azopt 1% ophthalmic suspension 1 drops, Eyes, Both, 2 times a day, # 5 mL, 0 Refills, Maintenance, 12/07/20 5:44:00 EST, Suspension, Partial fill upon patient request if the prescription is for a schedule II opioid drug. Start Date: 12/07/20 Status: Ordered Eliquis 5 mg oral tablet 1 tablet = 5 mg, By Mouth, 2 times a day, # 60 tablet, 0 Refills, Maintenance, 05/03/18 13:46:16 EDT, Tablet Start Date: 05/03/18 Status: Ordered Freestyle Lancets See Instructions, # 200 each, Maintenance, Check BS daily, Dx: T2DM E11.65, 06/14/23 10:01:00 EDT, Supply, 175.2, cm, 06/14/23 9:43:00 EDT, Height, 96.2, kg, 06/22/21 5:33:00 EDT, Dry Weight Start Date: 06/14/23 Status: Ordered FREESTYLE LANCETS 100 FREESTYLE LANCETS 100, See Instructions, # 200 each, 0 Refills, Maintenance, USE TO TEST TWICE DAILY, 06/14/23 9:56:00 EDT, 175.2, cm, 06/14/23 9:43:00 EDT, Height, 96.2, kg, 06/22/21 5:33:00 EDT, Dry Weight Start Date: 06/14/23 Status: Ordered FREESTYLE LITE BLOOD GLUCOSE STRIPS FREESTYLE LITE BLOOD GLUCOSE STRIPS, See Instructions, # 200 Unknown, 0 Refills, Maintenance, USE DIRECTED TO TEST TWICE DAILY, 09/19/23 13:34:00 EST, 175.2, cm, 06/14/23 9:43:00 EDT, Height Start Date: 09/19/23 Status: Ordered glipiZIDE 5 mg oral tablet, extended release 1 tablet = 5 mg, By Mouth, Daily, Increase in dose, # 90 tablet, 3 Refills, Maintenance, 06/14/23 9:53:00 EDT, ER Tablet, [facility] #[id number], Partial fill upon patient request if the prescription is for a schedule II opioid drug., 175.2, cm,... Start Date: 06/14/23 Status: Ordered hydrochlorothiazide 25 mg oral tablet 1, tablet, By Mouth, Daily, # 90 tablet, Refills 1, Maintenance, 06/27/23 10:39:00 EDT, Route to Pharmacy Electronically, [facility] #[id number], 175.2, cm, 06/14/23 9:43:00 EDT, Height Start Date: 06/27/23 Status: Ordered lisinopril 20 mg oral tablet 1, tablet, By Mouth, Daily, # 90 tablet, Refills 1, Tot. Refills 1, Maintenance, 03/18/23 22:05:00 EDT, Route to Pharmacy Electronically, [facility] #[id number], 175.2, cm, 03/14/23 9:18:00 EDT,Height, 96.2, kg, 06/22/21 5:33:00 EDT, Dry Weight Start Date: 03/18/23 Status: Ordered metFORMIN 500 mg oral tablet 1 tablet, By Mouth, 2 times a day, # 180 tablet, 2 Refills, Maintenance, 07/11/23 18:23:00 EDT, [facility] #[id number], 175.2, cm, 06/14/23 9:43:00 EDT, Height Start Date: 07/11/23 Status: Ordered Timolol 0.5% Ophth 1, drops, Eyes, Both, 2 times a day, Refills 0, Maintenance, 11/15/16 17:09:47 EST, Ophth Solution Start Date: 11/15/16 Status: Ordered Xelpros 0.005% ophthalmic emulsion Start Date: 12/07/20 Status: Ordered Problem List Condition Confirmation Course Effective Dates Status H ealth Status Informant Atrial fibrillation Confirmed Active Chronic kidney disease, stage 3a 1 Confirmed Active Atherosclerotic heart disease of [place] coronary artery without angina pectoris Confirmed Active Cough Confirmed Active Essential hypertension Confirmed Active Glaucoma Confirmed Active Gustatory rhinitis Confirmed Active Mixed hyperlipidemia Confirmed Active OA (osteoarthritis) of hip, right Confirmed Active Obese class I Confirmed Active Diabetes mellitus type 2 Confirmed Active 1Per chart review meeting GFR criteria Social History Social History Type Response Smoking Status Never (less than 100 in lifetime) entered on: 12/07/20 Sex Patient Care team information Care Team Personnel Name: Rommel Figueroa MD Position: [facility] Physician - Primary Care Member Role: PCP Address: Address: [address] [place] [id number]- Name: Daniela Rouse RN Position: [facility] RN Member Role: Primary Care Nurse Name: Criss Perdomo RN Position: S RN Member Role: Primary Care Nurse Care Team Related Persons Name: TANNER BUTLER Address: home [id number]
--- OUTSIDE RECORDS SUMMARY | 2023-11-23 08:40 | XMS_ITS | Continuity of Care Document ---
Author Name Unknown Organization [facility] Address [address] [place] [address]- Care Team Providers Care Suspension Cord Tier Name Role Phone Carolina LEIVA, Rommel Doshi Primary Care Physician Encounter [facility] [place] Date(s): 03/14/23 - 04/13/23 [facility] [address], [place] [address] Attending Physician: Saniya Dai Admitting Physician: AdmSaniya calle Referring Physician: AdmtrSaniya Allergies, Adverse Reactions, Alerts No Known Allergies Immunizations Given and Recorded Vaccine Date Status Refusal Reason pneumococcal 23-valent vaccine 1 12/15/22 Given influenza virus vaccine, inactivated 09/27/22 Sharad rded influenza virus vaccine, inactivated 12/13/21 Give n influenza virus vaccine, inactivated 08/20/20 Give n [id number] 12y+ bivalent booster vax 09/27/22 Recorded SARS-CoV-2 mRNA ([id number]) vax 05/09/22 Recorded SARS-CoV-2 (COVID-19) mRNA BNT-162b2 vac 09/28/21 Recorded SARS-CoV-2 (COVID-19) mRNA BNT-162b2 vac 01/29/21 Given SARS-CoV-2 (COVID-19) mRNA BNT-162b2 vac 01/08/21 Given pneumococcal 13-valent vaccine 2 08/03/18 Given tetanus/diphtheria/pertussis, acel(Tdap) 10/30/14 Recorded 1Result Comment: [id number] 2Result Comment: [08/03/2018] [facility] [id number] Medications acetaminophen 325 mg oral tablet 650 mg, By Mouth, Every 6 hours, May take OTC, follow directions on bottle, Refills 0, Maintenance,02/09/21 6:42:00 EST, Partial fill upon patient request [...] mg, By Mouth, Daily, 0 Refills, Maintenance, 12/15/22 9:31:00 EST, Partial fill upon patient request if the prescription is for a schedule II opioid drug. Start Date: 12/15/22 Status: Ordered Azopt 1% ophthalmic suspension 1 [...] EDT, Tablet Start Date: 05/03/18 Status: Ordered glipiZIDE 2.5 mg oral tablet, extended release See Instructions, TAKE 1 TABLET BY MOUTH DAILY WITH BREAKFAST, # 30 tablet, 5 Refills, [facility][id number], 175.2, cm, 12/13/21 14:13:00 EST, Height, 96.2, kg, 06/22/21 5:33:00 EDT, Dry Weight Start Date: 03/11/22 Status: Ordered hydrochlorothiazide 25 mg oral tablet 1, tablet, By Mouth, Daily, # 90 tablet, Refills 0, Maintenance, 03/29/23 7:38:00 EDT, Route to Pharmacy Electronically, [facility] #[id number], 175.2, cm, 03/14/23 9:18:00 EDT, Height, 96.2, kg, 06/22/21 5:33:00 EDT, Dry Weight Start Date: 03/29/23 Status: Ordered lisinopril 20 mg oral tablet 1, tablet, By Mouth, Daily, # 90 tablet, Refills 1, Tot. Refills 1, Maintenance, 03/18/23 22:05:00 EDT, Route to Pharmacy Electronically, [facility] #[id number], 175.2, cm, 03/14/23 9:18:00 EDT,Height, 96.2, kg, 06/22/21 5:33:00 EDT, Dry Weight Start Date: 03/18/23 Status: Ordered metFORMIN 500 mg oral tablet 1 tablet, By Mouth, 2 times a day, # 180 tablet, 0 Refills, Maintenance, 04/12/23 19:38:00 EDT, [facility] #[id number], 175.2, cm, 03/14/23 9:18:00 EDT, Height, 96.2, kg, 06/22/21 5:33:00 EDT, Dry Weight Start Date: 04/12/23 Status: Ordered Timolol 0.5% Ophth 1, drops, Eyes, Both, 2 times a day, Refills 0, Maintenance, 11/15/16 17:09:47 EST, Ophth Solution Start Date: 11/15/16 Status: Ordered Xelpros 0.005% ophthalmic emulsion Start Date: 12/07/20 Status: Ordered Problem List Condition Confirmation Course Effective Dates Status H ealth Status Informant Atrial fibrillation Confirmed Active Chronic kidney disease, stage 3a 1 Confirmed Active Atherosclerotic heart disease of [place] coronary artery without angina pectoris Confirmed Active [...] Team Personnel Name: Rommel Figueroa MD Position: [facility] Physician - Primary Care Member Role: PCP Address: Address: [address] [place] [id number] Name: Daniela Rouse RN Position: S RN Member Role: Primary Care Nurse Name: Criss Perdomo RN Position: S RN Member Role: Primary Care Nurse Care Team Related Persons Name: TANNER BUTLER Address: [place] [id number]
--- OUTSIDE RECORDS SUMMARY | 2023-11-23 08:40 | XMS_ITS | Continuity of Care Document ---
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) - 08/20/20 Atrial fibrillation(Discharge Diagnosis) - 08/20/20 Glaucoma(Discharge Diagnosis) - 08/20/20 Attending Physician: Rommel Figueroa MD Allergies, Adverse Reactions, Alerts Substance Reaction Severity Status NKA Active Immunizations Given and Recorded Vaccine Date Status Refusal Reason influenza virus vaccine, inactivated 08/20/20 Give n pneumococcal 13-valent vaccine 1 08/03/18 Given tetanus/diphtheria/pertussis, acel(Tdap) 10/30/14 Recorded 1Result Comment: [08/03/2018] [facility] [id number] Medications Aspirin Tablet 81, mg, By Mouth, Daily, 0, 2, 0, 2, 08/17/07 11:12:02, ADS OPPTHS, 1.97881v+006 Start Date: 08/17/07 Stop Date: 11/15/07 Status: [...] breakfast, # 30 tablet, 2 Refills, Maintenance, 08/18/20 10:08:00 EDT, ER Tablet, [facility] #[id number], 178, cm, 05/20/20 9:17:00 EDT, Height Start Date: 08/18/20 Status: Ordered hydrochlorothiazide 25 mg oral tablet [...] tablet, 3 Refills, Maintenance, 04/24/20 10:57:00EDT, Tablet, [facility][id number], 178, cm, 04/24/20 10:32:00 EDT, Height Start [...] fibrillation(Confirmed) Active Atherosclerotic heart diseas e of [place] coronary artery without angina pectoris(Confirmed) Active Essential hypertension(Confirmed) Active Glaucoma(Confirmed) Active Mixed hyperlipidemia(Confirmed) Active Uncontrolled type 2 diabetes mellitus(Confirmed) Active Diagnosis Diagnosis Type Effective Dates Health Status Clinical Service Informant Osteoarthritis of hip Discharge Diagnosis 08/20/20 Uncontrolled type 2 diabetes mellitus Discharge Diagnosis 08/20/20 Essential hypertension Discharge Diagnosis 08/20/20 Atherosclerotic heart disease of [place] coronary artery without angina pectoris Discharge Diagnosis 08/20/20 Atrial fibrillation Discharge Diagnosis 08/20/20 Glaucoma Discharge Diagnosis 08/20/20 Vital Signs Most recent to oldest [Reference Range]: 1 Height 178.00 cm (08/20/20 7:52 AM) Weight 98.8 kg (08/20/20 7:52 AM) Oxygen Saturation [94-100 %] 96 % (08/20/20 7:52 AM) Pulse Rate [55-90 bpm] 57 bpm (08/20/20 7:52 AM) Body Mass Index [18.5-24.99] 31.18 *>HHI* (08/20/20 7:52 AM) Blood Pressure [90-138/55-84 mm Hg] 122/ 78mm Hg (08/20/20 7:52 AM) Temperature [96.8-100.4 DegF] 97.4 DegF (08/20/20 7:52 AM) Blood pressure sites Arm, left (08/20/20 7:52 AM) Temperature Route Oral (08/20/20 7:52 AM) Weight Obtained Via Standing scale (08/20/20 7:52 AM) Social History Social History Type Response Smoking Status Never smoker entered on: 11/15/16 Sex
--- OUTSIDE RECORDS SUMMARY | 2023-11-23 08:40 | XMS_ITS | Continuity of Care Document ---
Author Name Unknown Organization [facility] Address [address] [place] [address]- Care Team Providers Care Intellectual Property Counsel Name Role Phone Carolina LEIVA, Rommel Doshi Primary Care Physician [place] [facility] [place] Date(s): 05/25/20 - 07/16/20 [facility] [address] [place] [address] [facility] Attending Physician: Kasandra Zamora MD Admitting Physician: Kasandra Zamora MD Referring Physician: Capo Duggan MD Allergies, Adverse Reactions, Alerts Substance Reaction Severity Status NKA Active Immunizations Given and Recorded Vaccine Date Status Refusal Reason pneumococcal 13-valent vaccine 1 08/03/18 Given tetanus/diphtheria/pertussis, acel(Tdap) 10/30/14 Recorded 1Result Comment: [08/03/2018] [facility] [id number] Medications Aspirin Tablet 81, mg, By Mouth, Daily, 0, 2, 0, 2, 08/17/07 11:12:02, ADS OPPTHS, [id number]+006 Start Date: 08/17/07 Stop Date: 11/15/07 Status: [...] Refills, Maintenance, 04/24/20 10:57:00 EDT, ER Tablet, [facility][id number], 178, cm, 04/24/20 10:32:00 EDT, Height Start [...] tablet, 3 Refills, Maintenance, 04/24/20 10:57:00EDT, Tablet, [facility] #[id number], 178, cm, 04/24/20 10:32:00 EDT, Height Start [...] fibrillation(Confirmed) Active Atherosclerotic heart diseas e of [place] coronary artery without angina pectoris(Confirmed) Active Essential hypertension(Confirmed) Active Glaucoma(Confirmed) Active Mixed hyperlipidemia(Confirmed) Active Uncontrolled type 2 diabetes mellitus(Confirmed) Active Social History Social History Type Response Smoking Status Never smoker entered on: 11/15/16 Sex
--- OUTSIDE RECORDS SUMMARY | 2023-11-23 08:40 | XMS_ITS | Continuity of Care Document ---
Author Name Unknown Organization [facility] Address [address] [place] [address]- Care Team Providers Care Systems Administration Analyst Name Role Phone Carolina LEIVA, Rommel Doshi Primary Care Physician Encounter 12/09/20 - 12/17/20 [facility] [address] [place] [address]- Discharge Disposition: GOALS MET Allergies, Adverse Reactions, Alerts Substance Reaction Severity Status NKA Active Immunizations Given and Recorded Vaccine Date Status Refusal Reason influenza virus vaccine, inactivated 08/20/20 Give n pneumococcal 13-valent vaccine 1 08/03/18 Given tetanus/diphtheria/pertussis, acel(Tdap) 10/30/14 Recorded 1Result Comment: [08/03/2018] [facility] [id number] Medications acetaminophen 325 mg oral tablet 650 [...] 12/08/20 6:44:00 EST, Route to Pharmacy Electronically, [facility], Partial fill upon patient [...] Refills, Maintenance, 11/09/20 7:56:00 EST, ER Tablet, [facility] #[id number], 178, cm, 11/02/20 8:16:00 EST, Height Start [...] tablet, 3 Refills, Maintenance, 04/24/20 10:57:00EDT, Tablet, [facility] #[id number], 178, cm, 04/24/20 10:32:00 EDT, Height Start [...] tablets by mouth daily as directed by [facility], # 150 tablet, 0 Refills, Maintenance, 12/08/20 6:47:00 EST, Tablet, [facility], Partial fill upon patient requestif the prescription is for a schedule II opioid nae... Start Date: 12/08/20 Stop Date: 01/05/21 Status: Ordered Xelpros 0.005% ophthalmic emulsion Start Date: 12/07/20 Status: Ordered Problem List Condition Effective Dates Status Health Status Inform ant Atrial fibrillation(Confirmed) Active Atherosclerotic heart diseas e of [place] coronary artery without angina pectoris(Confirmed) Active Essential hypertension(Confirmed) Active Glaucoma(Confirmed) Active Mixed hyperlipidemia(Confirmed) Active OA (osteoarthritis) of hip, right(Confirmed) Active Diabetes mellitus type 2(Confirmed) Active Social History Social History Type Response Smoking Status Never (less than 100 in lifetime) entered on: 12/07/20 Sex
--- OUTSIDE RECORDS SUMMARY | 2023-11-23 08:41 | XMS_ITS | Continuity of Care Document ---
Author Name Unknown Organization [facility] Address [address] [place] [address]- Care Team Providers Care Orchard Hand Name Role Phone Carolina LEIVA, Rommel Doshi Primary Care Physician Encounter [facility] [place] Date(s): 11/17/20 - 12/17/20 [facility] Adult [address] [place] [address]- Allergies, Adverse Reactions, Alerts Substance Reaction Severity Status NKA Active Immunizations Given and Recorded Vaccine Date Status Refusal Reason influenza virus vaccine, inactivated 08/20/20 Give n pneumococcal 13-valent vaccine 1 08/03/18 Given tetanus/diphtheria/pertussis, acel(Tdap) 10/30/14 Recorded 1Result Comment: [08/03/2018] [facility] 8301-7400-23 Medications acetaminophen 325 mg oral tablet 650 [...] 12/08/20 6:44:00 EST, Route to Pharmacy Electronically, [facility], Partial fill upon patient request [...] Refills, Maintenance, 11/09/20 7:56:00 EST, ER Tablet, [facility] #[id number], 178, cm, 11/02/20 8:16:00 EST, Height Start [...] tablet, 3 Refills, Maintenance, 04/24/20 10:57:00EDT, Tablet, [facility] #[id number], 178, cm, 04/24/20 10:32:00 EDT, Height Start [...] 0 Refills, Maintenance, 12/08/20 6:47:00 EST, Tablet, [facility], Partial fill upon patient requestif the prescription is for a schedule II opioid nae... Start Date: 12/08/20 Stop Date: 01/05/21 Status: Ordered Xelpros 0.005% ophthalmic emulsion Start Date: 12/07/20 Status: Ordered Problem List Condition Effective Dates Status Health Status Inform ant Atrial fibrillation(Confirmed) Active Atherosclerotic heart diseas e of [place] coronary artery without angina pectoris(Confirmed) Active Essential hypertension(Confirmed) Active Glaucoma(Confirmed) Active Mixed hyperlipidemia(Confirmed) Active OA (osteoarthritis) of hip, right(Confirmed) Active Diabetes mellitus type 2(Confirmed) Active Social History Social History Type Response Smoking Status Never (less than 100 in lifetime) entered on: 12/07/20 Sex
--- OUTSIDE RECORDS SUMMARY | 2023-11-23 08:41 | XMS_ITS | Continuity of Care Document ---
Author Name Unknown Organization [facility] Address [address] [place] [address]- Care Team Providers Care Abrasive Mixer Name Role Phone Carolina LEIVA, Rommel Doshi Primary Care Physician Encounter [facility] [place] [id number] Date(s): 01/18/21 - 01/25/21 [facility] Adult [address] [place] [address]- Encounter Diagnosis Pre-operative clearance(Discharge Diagnosis) - 01/18/21 Attending Physician: Marques FOSTER, Sosa Kennedy Referring Physician: Darell Ellis MD Allergies, Adverse Reactions, Alerts Substance Reaction Severity Status NKA Active Immunizations Given and Recorded Vaccine Date Status Refusal Reason SARS-CoV-2 (COVID-19) mRNA BNT-162b2 vac 01/08/21 Given influenza virus vaccine, inactivated 08/20/20 Give n pneumococcal 13-valent vaccine 1 08/03/18 Given tetanus/diphtheria/pertussis, acel(Tdap) 10/30/14 Recorded 1Result Comment: [08/03/2018] [facility] [id number] Medications acetaminophen 325 mg oral tablet 650 [...] 12/08/20 6:44:00 EST, Route to Pharmacy Electronically, [facility], Partial fill upon patient request if [...] Refills, Maintenance, 01/12/21 16:30:00 EDT, ER Tablet, [facility] #[id number], 178, cm, 12/08/20 7:50:00 EST, Height, 97.3, [...] tablet, 3 Refills, Maintenance, 04/24/20 10:57:00EDT, Tablet, [id number], 178, cm, 04/24/20 10:32:00 EDT, Height Start [...] 0 Refills, Maintenance, 12/08/20 6:47:00 EST, Tablet, [facility], Partial fill upon patient requestif the prescription is for a schedule II opioid nae... Start Date: 12/08/20 Stop Date: 01/05/21 Status: Ordered Xelpros 0.005% ophthalmic emulsion Start Date: 12/07/20 Status: Ordered Problem List Condition Effective Dates Status Health Status Inform ant Atrial fibrillation(Confirmed) Active Atherosclerotic heart diseas e of [place] coronary artery without angina pectoris(Confirmed) Active Essential hypertension(Confirmed) Active Glaucoma(Confirmed) Active Mixed hyperlipidemia(Confirmed) Active OA (osteoarthritis) of hip, right(Confirmed) Active Diabetes mellitus type 2(Confirmed) Active Diagnosis Diagnosis Type Effective Dates Health Status Cl inical Service Informant Pre-operative clearance Discharge Diagnosis 01/18/21 Vital Signs Most recent to oldest [Reference Range]: 1 Height 178 cm (01/18/21 8:54 AM) Weight 99.7 kg (01/18/21 8:54 AM) Oxygen Saturation [94-100 %] 98 % (01/18/21 8:54 AM) Pulse Rate [55-90 bpm] 66 bpm (01/18/21 8:54 AM) Body Mass Index [18.5-24.99] 31.47 *>HHI* (01/18/21 8:54 AM) Blood Pressure [90-138/55-84 mm Hg] 138/ 81mm Hg (01/18/21 8:54 AM) Temperature [96.8-100.4 DegF] 97.3 DegF (01/18/21 8:54 AM) Temperature Route Oral (01/18/21 8:54 AM) Weight Obtained Via Standing scale (01/18/21 8:54 AM) Social History Social History Type Response Smoking Status Never (less than 100 in lifetime) entered on: 12/07/20 Sex
--- OUTSIDE RECORDS SUMMARY | 2023-11-23 08:41 | XMS_ITS | Continuity of Care Document ---
Author Name Unknown Organization [facility] Address [address] [place] [address]- Care Team Providers Care Street Roller Engineer Name Role Phone Carolina LEIVA, Rommel Doshi Primary Care Physician [phone] [place] [facility] [place](s): 06/24/20 - 07/24/20 [facility] Adult [address] [place] [address]- [facility] Allergies, Adverse Reactions, Alerts Substance Reaction Severity Status NKA Active Immunizations Given and Recorded Vaccine Date Status Refusal Reason pneumococcal 13-valent vaccine 1 08/03/18 Given tetanus/diphtheria/pertussis, acel(Tdap) 10/30/14 Recorded 1Result Comment: [08/03/2018] [facility] 9275-9278-31 Medications Aspirin Tablet 81, mg, By Mouth, Daily, 0, 2, 0, 2, 08/17/07 11:12:02, ADS OPPTHS, 1.28785c+006 Start Date: 08/17/07 Stop Date: 11/15/07 Status: [...] Refills, Maintenance, 04/24/20 10:57:00 EDT, ER Tablet, [facility] #[id number], 178, cm, 04/24/20 10:32:00 EDT, Height Start [...] tablet, 3 Refills, Maintenance, 04/24/20 10:57:00EDT, Tablet, [facility] #[id number], 178, cm, 04/24/20 10:32:00 EDT, Height Start [...] fibrillation(Confirmed) Active Atherosclerotic heart diseas e of [place] coronary artery without angina pectoris(Confirmed) Active Essential hypertension(Confirmed) Active Glaucoma(Confirmed) Active Mixed hyperlipidemia(Confirmed) Active Uncontrolled type 2 diabetes mellitus(Confirmed) Active Social History Social History Type Response Smoking Status Never smoker entered on: 11/15/16 Sex
--- OUTSIDE RECORDS SUMMARY | 2023-11-23 08:41 | XMS_ITS | Continuity of Care Document ---
Author Name Unknown Organization [facility] Address [address] [place] [address]- Care Team Providers Care General Operations Manager Name Role Phone Carolina LEIVA, Rommel Doshi Primary Care Physician Encounter [facility] [place] ACCT R [id number] Date(s): 11/26/20 - 12/03/20 [facility] Adult [address] [place] [address]- Attending Physician: Rommel Figueroa MD Referring Physician: Niranjan Goodrich MD Allergies, Adverse Reactions, Alerts Substance Reaction Severity Status NKA Active Immunizations Given and Recorded Vaccine Date Status Refusal Reason influenza virus vaccine, inactivated 08/20/20 Give n pneumococcal 13-valent vaccine 1 08/03/18 Given tetanus/diphtheria/pertussis, acel(Tdap) 10/30/14 Recorded 1Result Comment: [08/03/2018] [facility] 7670-7176-09 Medications Aspirin Tablet 81, mg, By Mouth, Daily, 0, 2, 0, 2, 08/17/07 11:12:02, ADS OPPTHS, 1.74287x+006 Start Date: 08/17/07 Stop Date: 11/15/07 Status: [...] Refills, Maintenance, 11/09/20 7:56:00 EST, ER Tablet, [id number], 178, cm, 11/02/20 8:16:00 EST, Height Start [...] tablet, 3 Refills, Maintenance, 04/24/20 10:57:00EDT, Tablet, [id number], 178, cm, 04/24/20 10:32:00 EDT, Height Start [...] fibrillation(Confirmed) Active Atherosclerotic heart diseas e of [place] coronary artery without angina pectoris(Confirmed) Active Essential hypertension(Confirmed) Active Glaucoma(Confirmed) Active Mixed hyperlipidemia(Confirmed) Active OA (osteoarthritis) of hip, right(Confirmed) Active Diabetes mellitus type 2(Confirmed) Active Vital Signs Most recent to oldest [Reference Range]: 1 Height 178.00 cm (11/26/20 9:55 AM) Weight 98.0 kg (11/26/20 9:55 AM) Oxygen Saturation [94-100 %] 97 % (11/26/20 9:55 AM) Pulse Rate [55-90 bpm] 54 bpm *L* (11/26/20 9:55 AM) Body Mass Index [18.5-24.99] 30.93 *>HHI* (11/26/20 9:55 AM) Blood Pressure [90-138/55-84 mm Hg] 130/ 80mm Hg (11/26/20 9:55 AM) Temperature [96.8-100.4 DegF] 97.5 DegF (11/26/20 9:55 AM) Blood pressure sites Arm, right (11/26/20 9:55 AM) Temperature Route Oral (11/26/20 9:55 AM) Weight Obtained Via Standing scale (11/26/20 9:55 AM) Social History Social History Type Response Smoking Status Never smoker entered on: 11/15/16 Sex
--- OUTSIDE RECORDS SUMMARY | 2023-11-23 08:41 | XMS_ITS | Continuity of Care Document ---
Author Name Unknown Organization [facility] Address [address] [place] [address]- Care Team Providers Care Licensed Club Manager Name Role Phone Carolina LEIVA, Rommel Dsohi Primary Care Physician Encounter [place] Date(s): 02/26/20 - 05/20/[address] [address]- [facility] Attending Physician: Niranjan Goodrich MD Referring Physician: Niranjan Goodrich MD Allergies, Adverse Reactions, Alerts Substance Reaction Severity Status NKA Active Immunizations Given and Recorded Vaccine Date Status Refusal Reason pneumococcal 13-valent vaccine 1 08/03/18 Given tetanus/diphtheria/pertussis, acel(Tdap) 10/30/14 Recorded 1Result Comment: [08/03/2018] [facility] 2702-6450-94 Medications Aspirin Tablet 81, mg, By Mouth, Daily, 0, 2, 0, 2, 08/17/07 11:12:02, ADS OPPTHS, 1.94086c+006 Start Date: 08/17/07 Stop Date: 11/15/07 Status: [...] Refills, Maintenance, 04/24/20 10:57:00 EDT, ER Tablet, [facility] #[id number], 178, cm, 04/24/20 10:32:00 EDT, Height Start [...] tablet, 3 Refills, Maintenance, 04/24/20 10:57:00EDT, Tablet, [facility] #[id number], 178, cm, 04/24/20 10:32:00 EDT, Height Start [...] fibrillation(Confirmed) Active Atherosclerotic heart 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
--- OUTSIDE RECORDS SUMMARY | 2023-11-23 08:41 | XMS_ITS | Continuity of Care Document ---
Author Name Unknown Organization [facility] Salty lt Address [address] [place] [address]- Care Team Providers Care Court Operations Clerk Name Role Phone Carolina LEIVA, Rommel Doshi Primary Care Physician [phone] [place] [facility] [place](s): 07/04/22 - 08/03/22 [facility] Adult [address] [place] [address]- Allergies, Adverse Reactions, Alerts No Known Allergies [...] acel(Tdap) 10/30/14 Recorded 1Result Comment: [08/03/2018] [facility] 0958-1634-59 Medications acetaminophen 325 mg oral tablet 650 [...] opioid drug. Start Date: 06/23/21 Status: Ordered aspirin 81 mg oral delayed release tablet 81 mg, 1, tablet, By Mouth, Daily, # 30 tablet, Refills 0, Maintenance, 06/13/22 13:34:00 EDT, Partial fill upon patient request if the prescription is for a schedule II opioid drug. Start Date: 06/13/22 Status: Ordered Atorvastatin Tablet 80, mg, By [...] Tablet Start Date: 05/03/18 Status: Ordered FREESTYLE LANCETS 100 FREESTYLE LANCETS 100, See Instructions, # 200 each, 1 Refills, USE TO TEST BLOOD GLUCOSE TWICE DAILY, 175.2, cm, 12/13/21 14:13:00 EST, Height, 96.2, kg, 06/22/21 5:33:00 EDT, Dry Weight Start Date: 06/03/22 Status: Ordered FREESTYLE LITE BLOOD GLUCOSE STRIPS [...] USE DIRECTED TOTEST TWICE DAILY, 175.2, cm, 12/13/21 14:13:00 EST, Height, 96.2, kg, 06/22/21 5:33:00 EDT, Dry Weight Start Date: 06/03/22 Status: Ordered FREESTYLE LITE BLOOD GLUCOSE STRIPS [...] WITH BREAKFAST, # 30 tablet, 5 Refills, [facility] #[id number], 175.2, cm, 12/13/21 14:13:00 EST, Height, 96.2, kg, 06/22/21 5:33:00 EDT, Dry Weight Start Date: 03/11/22 Status: Ordered hydrochlorothiazide 25 mg oral tablet 1, tablet, By Mouth, Daily, # 90 tablet, Refills 3, Tot. Refills 3, 12/20/21 6:32:00 EST, Route to Pharmacy Electronically, [facility] #[id number], 175.2, cm, 12/13/21 14:13:00 EST, Height, 96.2, kg, 06/22/21 5:33:00 EDT, Dry Weight Start Date: 12/20/21 Status: Ordered lisinopril 20 mg oral tablet 20 mg, 1, tablet, By Mouth, Daily, # 90 tablet, Refills 3, Tot. Refills 3, Maintenance, 12/20/21 6:32:00 EST, Route to Pharmacy Electronically, [facility] #[id number], Partial fill upon patient request if the prescription is for a schedule II opi... Start Date: 12/20/21 Status: Ordered metFORMIN 500 mg oral tablet 1 tablet, By Mouth, 2 times a day, # 180 tablet, 1 Refills, [facility] #[id number], 175.2, cm,12/13/21 14:13:00 EST, Height, 96.2, kg, 06/22/21 5:33:00 EDT, Dry Weight Start Date: 04/16/22 Status: Ordered Rhopressa 0.02% ophthalmic solution 1 [...] 1 Confirmed Active Atherosclerotic heart disease of [place] coronary artery without angina pectoris Confirmed Active Cough Confirmed Active Essential hypertension Confirmed Active Glaucoma Confirmed Active Mixed hyperlipidemia Confirmed Active OA (osteoarthritis) of hip, right Confirmed Active Obese class I Confirmed Active Diabetes mellitus type 2 Confirmed Active 1Per chart review meeting GFR criteria Social History Social History Type Response Smoking Status Never (less than 100 in lifetime) entered on: 12/07/20 Sex Patient Care team information Personnel Name: Carolina LEIVA, Rommel Doshi Address: Address: [address] [place] [address]-
--- OUTSIDE RECORDS SUMMARY | 2023-11-23 08:41 | XMS_ITS | Continuity of Care Document ---
Author Name Unknown Organization [facility] Address [address] [place] [address]- Care Team Providers Care Prevention Specialist Name Role Phone Rommel Figueroa MD Primary Care Physician [phone] [place] [facility] [place] 04/24/20 - 05/01/20 [facility] Adult [address] [place] [address]- 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) - 04/26/20 Essential hypertension(Discharge Diagnosis) - 04/26/20 Attending Physician: Rommel Figueroa MD Allergies, Adverse Reactions, Alerts Substance Reaction Severity Status NKA Active Immunizations Given and Recorded Vaccine Date Status Refusal Reason pneumococcal 13-valent vaccine 1 08/03/18 Given tetanus/diphtheria/pertussis, acel(Tdap) 10/30/14 Recorded 1Result Comment: [08/03/2018] [facility] 6069-8881-19 Medications Aspirin Tablet 81, mg, By Mouth, Daily, 0, 2, 0, 2, 08/17/07 11:12:02, ADS OPPTHS, [id number] Start Date: 08/17/07 Stop Date: 11/15/07 Status: [...] Refills, Maintenance, 04/24/20 10:57:00 EDT, ER Tablet, [facility] #[id number], 178, cm, 04/24/20 10:32:00 EDT, Height Start [...] tablet, 3 Refills, Maintenance, 04/24/20 10:57:00EDT, Tablet, [facility] #[id number], 178, cm, 04/24/20 10:32:00 EDT, Height Start [...] fibrillation(Confirmed) Active Atherosclerotic heart diseas e of [place] coronary artery without angina pectoris(Confirmed) Active Essential hypertension(Confirmed) Active Glaucoma(Confirmed) Active Mixed hyperlipidemia(Confirmed) Active Uncontrolled type 2 diabetes mellitus(Confirmed) Active Diagnosis Diagnosis Type Effective Dates Health Status Clinical Service Informant Atherosclerotic heart disease of [place] coronary artery without angina pectoris Discharge Diagnosis 04/26/20 Atrial fibrillation Discharge Diagnosis 04/26/20 Essential hypertension Discharge Diagnosis 04/26/20 Mixed hyperlipidemia Discharge Diagnosis 04/26/20 Vital Signs Most recent to oldest [Reference Range]: 1 Height 178.00 cm (04/24/20 10:32 AM) Weight 91.3 kg (04/24/20 10:32 AM) Pulse Rate [55-90 bpm] 62 bpm (04/24/20 10:32 AM) Body Mass Index [18.5-24.99] 28.82 *H* (04/24/20 10:32 AM) Blood Pressure [90-138/55-84 mm Hg] 118/ 64mm Hg (04/24/20 10:32 AM) Respiratory Rate [16-30 br/min] 12 br/mi n *L* (04/24/20 10:32 AM) Temperature [96.8-100.4 DegF] 97.2 DegF (04/24/20 10:32 AM) Blood pressure sites Arm, left (04/24/20 10:32 AM) Temperature Route Oral (04/24/20 10:32 AM) Weight Obtained Via Standing scale (04/24/20 10:32 AM) Social History Social History Type Response Smoking Status Never smoker entered on: 11/15/16 Sex
--- OUTSIDE RECORDS SUMMARY | 2023-11-23 08:41 | XMS_ITS | Continuity of Care Document ---
Author Name Unknown Organization [facility] ter Address [address] [place] [id number]- Care Team Providers Care Shoe Sticks Repairer Name Role Phone Carolina LEIVA, Rommel Doshi Primary Care Physician [phone] En[facility] [place] Date(s): 02/13/20 - 03/20/[address] [address]- [facility] Attending Physician: Niranjan Goodrich MD Admitting Physician: Niranjan Goodrich MD Referring Physician: Niranjan Goodrich MD Allergies, Adverse Reactions, Alerts Substance Reaction Severity Status NKA Active Immunizations Given and Recorded Vaccine Date Status Refusal Reason pneumococcal 13-valent vaccine 1 08/03/18 Given tetanus/diphtheria/pertussis, acel(Tdap) 10/30/14 Recorded 1Result Comment: [08/03/2018] [facility] 7035-0935-48 Medications Aspirin Tablet 81, mg, By Mouth, Daily, 0, 2, 0, 2, 08/17/07 11:12:02, ADS OPPTHS, [id number] Start Date: 08/17/07 Stop Date: 11/15/07 Status: [...] tablet = 500 mg, By Mouth, Daily before dinner, # 30 tablet, 0 Refills, Maintenance, 02/20/20 8:49:00 EDT Start Date: 02/20/20 Status: Ordered Timolol 0.5% Ophth 1, drops, Eyes, Both, Daily, Refills 0, Maintenance, 11/15/16 17:09:47, Ophth Solution Start Date: 11/15/16 Status: Ordered Travatan Z 0.004% ophthalmic solution 1 drops, Eyes, Both, Daily at bedtime, 0 Refills, Maintenance, 11/15/16 17:10:42 Start Date: 11/15/16 Status: Ordered Problem List Condition Effective Dates Status Health Status Inform ant Atrial fibrillation(Confirmed) Active 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
--- OUTSIDE RECORDS SUMMARY | 2023-11-23 08:41 | XMS_ITS | Continuity of Care Document ---
Author Name Unknown Organization [facility] lt Address [address] [place] [address]- Care Team Providers Care Meat And Seafood Clerk Name Role Phone Rommel Figueroa MD Primary Care Physician Encounter [facility] [place] Date(s): 06/13/22 - 06/20/22 [facility] Adult [address] [place] [address]- Attending Physician: Rommel Figueroa MD Allergies, Adverse [...] acel(Tdap) 10/30/14 Recorded 1Result Comment: [08/03/2018] [facility] 8610-8799-18 Medications acetaminophen 325 mg oral tablet 650 [...] WITH BREAKFAST, # 30 tablet, 5 Refills, [facility] #[id number], 175.2, cm, 12/13/21 14:13:00 EST, Height, 96.2, kg, 06/22/21 5:33:00 EDT, Dry Weight Start Date: 03/11/22 Status: Ordered hydrochlorothiazide 25 mg oral tablet 1, tablet, By Mouth, Daily, # 90 tablet, Refills 3, Tot. Refills 3, 12/20/21 6:32:00 EST, Route to Pharmacy Electronically, [facility] #[id number], 175.2, cm, 12/13/21 14:13:00 EST, Height, 96.2, kg, 06/22/21 5:33:00 EDT, Dry Weight Start Date: 12/20/21 Status: Ordered lisinopril 20 mg oral tablet 20 mg, 1, tablet, By Mouth, Daily, # 90 tablet, Refills 3, Tot. Refills 3, Maintenance, 12/20/21 6:32:00 EST, Route to Pharmacy Electronically, [facility] #[id number], Partial fill upon patient request if the prescription is for a schedule II opi... 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 Cough(Confirmed) Active Essential hypertension(Confirmed) Active Glaucoma(Confirmed) Active Mixed hyperlipidemia(Confirmed) Active OA (osteoarthritis) of hip, right(Confirmed) Active Obese class I(Confirmed) Active Diabetes mellitus type 2(Confirmed) Active Vital Signs Most recent to oldest [Reference Range]: 1 Height 175.2 cm (06/13/22 1:29 PM) Weight 97.3 kg (06/13/22 1:29 PM) Oxygen Saturation [94-100 %] 99 % (06/13/22 1:29 PM) Pulse Rate [55-90 bpm] 55 bpm (06/13/22 1:29 PM) Body Mass Index [18.5-24.99] 31.7 *>HHI* (06/13/22 1:29 PM) Blood Pressure [90-138/55-84 mm Hg] 122/ 61mm Hg (06/13/22 1:29 PM) Respiratory Rate [16-30 br/min] 16 br/mi n (06/13/22 1:29 PM) Temperature [96.8-100.4 DegF] 97.5 DegF (06/13/22 1:29 PM) Mode of Delivery (Oxygen) Room air (06/13/22 1:29 PM) Blood pressure sites Arm, left (06/13/22 1:29 PM) Temperature Route Oral (06/13/22 1:29 PM) Weight Obtained Via Standing scale (06/13/22 1:29 PM) Social History Social History Type Response Smoking Status Never (less than 100 in lifetime) entered on: 12/07/20 Sex
--- OUTSIDE RECORDS SUMMARY | 2023-11-23 08:41 | XMS_ITS | Continuity of Care Document ---
Author Name Unknown Organization [facility] Sal[facility] lt Address [address] [place] [address]- Care Team Providers Care Testing Projects Administrator Name Role Phone Carolina LEIVA, Rommel Doshi Primary Care Physician Encounter [facility] [place] [facility] [id number] Date(s): 06/26/20 - 07/26/20 [facility] Adult [address] [place] [address]- [facility] Allergies, Adverse Reactions, Alerts Substance Reaction Severity Status NKA Active Immunizations Given and Recorded Vaccine Date Status Refusal Reason pneumococcal 13-valent vaccine 1 08/03/18 Given tetanus/diphtheria/pertussis, acel(Tdap) 10/30/14 Recorded 1Result Comment: [08/03/2018] [facility] 2071-7281-62 Medications Aspirin Tablet 81, mg, By Mouth, Daily, 0, 2, 0, 2, 08/17/07 11:12:02, ADS OPPTHS, [id number] Start Date: 08/17/07 Stop Date: 11/15/07 Status: [...] Refills, Maintenance, 04/24/20 10:57:00 EDT, ER Tablet, [email or web address] #[id number], 178, cm, 04/24/20 10:32:00 EDT, Height Start [...] tablet, 3 Refills, Maintenance, 04/24/20 10:57:00EDT, Tablet, [email or web address] #[id number], 178, cm, 04/24/20 10:32:00 EDT, Height Start [...] Active 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
--- OUTSIDE RECORDS SUMMARY | 2023-11-23 08:41 | XMS_ITS | Continuity of Care Document ---
Author Name Unknown Organization [facility] Address [address] [place] [address]- Care Team Providers Care Cartridge Filler Name Role Phone Carolina LEIVA, Rommel Doshi Primary Care Physician [phone] [place] [facility] [place]09[place]23 - 11/09/[address] [address]- Discharge Disposition: A-D/C Home Attending Physician: Capo Duggan MD Admitting Physician: Capo Duggan MD Referring Physician: Capo Duggan MD Allergies, Adverse Reactions, Alerts No Known Allergies Immunizations Given and Recorded Vaccine Date Status Refusal Reason pneumococcal 23-valent vaccine 1 12/15/22 Given influenza virus vaccine, inactivated 09/27/22 Sharad rded influenza virus vaccine, inactivated 12/13/21 Give n influenza virus vaccine, inactivated 08/20/20 Give n [id number] 12y+ bivalent booster vax 09/27/22 Recorded SARS-CoV-2 mRNA ([id number]) vax 05/09/22 Recorded SARS-CoV-2 (COVID-19) mRNA BNT-162b2 vac 09/28/21 Recorded SARS-CoV-2 (COVID-19) mRNA BNT-162b2 vac 01/29/21 Given SARS-CoV-2 (COVID-19) mRNA BNT-162b2 vac 01/08/21 Given pneumococcal 13-valent vaccine 2 08/03/18 Given tetanus/diphtheria/pertussis, acel(Tdap) 10/30/14 Recorded 1Result Comment: [id number] 2Result Comment: [08/03/2018] [facility] 8166-1030-62 Medications acetaminophen 325 mg oral tablet 650 [...] 3 Refills, Maintenance, 06/14/23 9:55:00 EDT, Tablet, [facility] #[id number], Partial fill upon patient request if the [...] Refills, Maintenance, 06/14/23 9:53:00 EDT, ER Tablet, [facility] #[id number], Partial fill upon patient request if the prescription is for a schedule II opioid drug., 175.2, cm,... Start Date: 06/14/23 Status: Ordered hydrochlorothiazide 25 mg oral tablet 1, tablet, By Mouth, Daily, # 90 tablet, Refills 1, Maintenance, 06/27/23 10:39:00 EDT, Route to Pharmacy Electronically, [facility] #[id number], 175.2, cm, 06/14/23 9:43:00 EDT, Height Start Date: 06/27/23 Status: Ordered lisinopril 20 mg oral tablet 1, tablet, By Mouth, Daily, # 90 tablet, Refills 1, Tot. Refills 1, Maintenance, 03/18/23 22:05:00 EDT, Route to Pharmacy Electronically, [facility] #[id number], 175.2, cm, 03/14/23 9:18:00 EDT,Height, 96.2, kg, 06/22/21 5:33:00 EDT, Dry Weight Start Date: 03/18/23 Status: Ordered metFORMIN 500 mg oral tablet 1 tablet, By Mouth, 2 times a day, # 180 tablet, 2 Refills, Maintenance, 07/11/23 18:23:00 EDT, [facility] #[id number], 175.2, cm, 06/14/23 9:43:00 EDT, Height Start [...] 1 Confirmed Active Atherosclerotic heart disease of [place] coronary artery without angina pectoris Confirmed Active Cough Confirmed Active Essential hypertension Confirmed Active Glaucoma Confirmed Active Gustatory rhinitis Confirmed Active Mixed hyperlipidemia Confirmed Active OA (osteoarthritis) of hip, right Confirmed Active Obese class I Confirmed Active Diabetes mellitus type 2 Confirmed Active 1Per chart review meeting GFR criteria Vital Signs Most recent to oldest [Reference Range]: 1 2 3 Height 178 cm (11/09/23 12:26 PM) Weight 97.2 kg (11/09/23 12:26 PM) Oxygen Saturation [94-100 %] 96 % (11/09/23 1:50 PM) 100 % (11/09/23 1:30 PM) 97 % (11/09/23 1:20 PM) Pulse Rate [55-90 bpm] 56 bpm (11/09/23 12:26 PM) Body Mass Index [18.5-24.99 kg/m2] 30.68 kg/m2 *>HHI* (11/09/23 12:26 PM) Blood Pressure [90-138/55-84 mm Hg] 100/66mm Hg (11/09/23 1:30 PM) 99/63mm Hg (11/09/23 1:20 PM) 101/54mm Hg (11/09/23 1:15 PM) Respiratory Rate [16-30 br/min] 18 br/min (11/09/23 1:30 PM) 19 br/min (11/09/23 1:20 PM) 18 br/min (11/09/23 1:15 PM) Temperature [96.8-100.4 DegF] 97.2 DegF (11/09/23 1:10 PM) 97.5 DegF (11/09/23 12:26 PM) Liters per Minute 3 L/min (11/09/23 1:30 PM) 3 L/min (11/09/23 1:20 PM) 3 L/min (11/09/23 1:15 PM) Mode of Delivery (Oxygen) Room air (11/09/23 1:50 PM) Nasal cannula (11/09/23 1:30 PM) Nasal cannula (11/09/23 1:20 PM) Blood pressure sites Arm, left (11/09/23 1:10 PM) Arm, right (11/09/23 12:26 PM) Temperature Route Temporal (11/09/23 1:10 PM) Temporal (11/09/23 12:26 PM) Dry Weight 97.2 kg (11/09/23 12:26 PM) Dry Weight Obtained Via Standing scale (11/09/23 12:26 PM) Social History Social History Type Response Smoking Status Never (less than 100 in lifetime) entered on: 12/07/20 Sex Patient Care team information Care Team Personnel Name: Rommel Figueroa MD Position: S Physician - Primary Care Member Role: PCP Address: Address: [address] [place] [address]- Name: Daniela Rouse RN Position: S RN Member Role: Primary Care Nurse Name: Criss Perdomo RN Position: S RN Member Role: Primary Care Nurse Care Team Related Persons Name: TANNER BUTLER Address: home [id number]
--- OUTSIDE RECORDS SUMMARY | 2023-11-23 08:41 | XMS_ITS | Continuity of Care Document ---
Author Name Unknown Organization [facility] ter Address [address] [place] [address]- Care Team Providers Care Wet Char Conveyor Tender Name Role Phone Carolina LEIVA, Rommel Doshi Primary Care Physician Encounter [facility] [place] Date(s): 12/07/20 - 12/08/[address] [address] Discharge Disposition: A-Transfer VNA/Home Health Attending Physician: Niranjan Goodrich MD Admitting Physician: Niranjan Goodrich MD Referring Physician: Niranjan Goodrich MD Allergies, Adverse Reactions, Alerts Substance Reaction Severity Status NKA Active Immunizations Given and Recorded Vaccine Date Status Refusal Reason influenza virus vaccine, inactivated 08/20/20 Give n pneumococcal 13-valent vaccine 1 08/03/18 Given tetanus/diphtheria/pertussis, acel(Tdap) 10/30/14 Recorded 1Result Comment: [08/03/2018] [facility] 5233-2178-52 Medications acetaminophen 325 mg oral tablet 650 mg, By Mouth, Every 6 hours, May take OTC, follow directions on bottle, Refills 0, Maintenance,12/08/20 6:42:00 EST, Partial fill upon patient request if the prescription is for a schedule II opioid drug. Start Date: 12/08/20 Status: Ordered Acetaminophen Tablet 650 mg, Tablet, By Mouth, 12/08/20 8:10:00 EST Start Date: 12/08/20 Stop Date: 12/08/20 Status: Completed Atorvastatin Tablet 80, mg, By Mouth, Daily [...] opioid drug. Start Date: 12/07/20 Status: Ordered Dilaudid Tablet 2 mg, Tablet, By Mouth, Every 4 hours, PRN for Pain , Mild, Routine, 12/07/20 8:59:00 EST Start Date: 12/07/20 Stop Date: 12/14/20 Status: Ordered docusate sodium 100 mg oral capsule 100 mg, 1, capsule, By Mouth, 2 times a day, hold for loose stool, # 60 capsule, Refills 0, Tot. Refills 0, Maintenance, 12/08/20 6:44:00 EST, Route to Pharmacy Electronically, [facility], Partial fill upon patient request if the prescri... Start Date: 12/08/20 Stop Date: 01/07/21 Status: Ordered Eliquis 5 mg oral tablet 1 tablet = 5 mg, By Mouth, 2 times a day, # 60 tablet, 0 Refills, Maintenance, 05/03/18 13:46:16 EDT, Tablet Start Date: 05/03/18 Status: Ordered enoxaparin 40 mg/0.4 mL injectable solution 0.4 mL = 40 mg, Subcutaneous Injection, Daily, for 7 days, Discontinue when INR is greater than 1.8, # 2.8 mL, 0 Refills, Acute 12/15/20 6:43:00 EST, 12/08/20 6:43:00 EST, Injection, [facility], Partial fill upon patient request if the p... Start Date: 12/08/20 Stop Date: 12/15/20 Status: Ordered Freestyle Lite Lancets See Instructions, [...] Refills, Maintenance, 11/09/20 7:56:00 EST, ER Tablet, [facility] #[id number], 178, cm, 11/02/20 8:16:00 EST, Height Start Date: 11/09/20 Status: Ordered hydrochlorothiazide 25 mg oral tablet 25 mg, 1, tablet, By Mouth, Daily, # 30 tablet, Refills 0, Maintenance, 02/01/18 13:19:27 EDT Start Date: 02/01/18 Status: Ordered HYDROmorphone 2 mg oral tablet See Instructions, PRN Pain , Mild, Take 1-2 tablet By Mouth Every 4 hours as needed, # 84 tablet, 0Refills, Acute 12/15/20 6:44:00 EST, 12/08/20 6:44:00 EST, Tablet, [facility], Partial fill upon patient request if the prescription is f... Start Date: 12/08/20 Stop Date: 12/15/20 Status: Ordered lisinopril 10 mg oral tablet [...] tablet, 3 Refills, Maintenance, 04/24/20 10:57:00EDT, Tablet, [facility] #[id number], 178, cm, 04/24/20 10:32:00 EDT, Height Start [...] tablets by mouth daily as directed by [facility], # 150 tablet, 0 Refills, Maintenance, 12/08/20 6:47:00 EST, Tablet, [facility], Partial fill upon patient requestif the prescription is for a schedule II opioid nae... 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 Essential hypertension(Confirmed) Active Glaucoma(Confirmed) Active Mixed hyperlipidemia(Confirmed) Active OA (osteoarthritis) of hip, right(Confirmed) Active Diabetes mellitus type 2(Confirmed) Active Results Radiology Reports * Exam Date Time Procedure Performing Provider Status 12/07/20 10:23 PM Pelvis 1 or 2 Views Prashanth Morel (Verified) Notes: (Pelvis 1 or 2 Views) Reason For Exam: Postop Prosthesis RESULT: Pelvis 1 or 2 Views Pelvis 1 or 2 Views Reason: Postop Prosthesis; Clinical Question(s): Status of Hip Prosthesis; Special Instructions: RIGHT Hip - Do today at 2200 COMPARISON: Earlier the same day FINDINGS: 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 Severe narrowing of the left hip with subchondral sclerosis. IMPRESSION: 1. No apparent complication of right total hip arthroplasty. 2. Severe arthritic changes of the left hip. WSN: [id number] Ordering Physician: Fuad Phillips Dictated By: Antonio Vasquez MD Dictated Date/Time: 12/07/20 10:41 p Reviewed By: Antonio Vasquez MD Signed By: Antonio Vasquez MD Signed Date/Time: 12/07/20 10:41 pm Transcribed By: KASIA Transcribed Date/Time: 12/07/20 10:39 pm * Exam Date Time Procedure Performing Provider Status 12/07/20 8:26 AM Pelvis 1 or 2 Views Madeleine Cain; Kelsey (Verified) Notes: (Pelvis 1 or 2 Views) Reason For Exam: OA R total hip replacement RESULT: Pelvis 1 or 2 Views Pelvis 1View Reason: OA R total hip replacement; Special Instructions: OR Room 15 FINDINGS: ?Components of prosthesis appear to be in typical location on this single view study. ? IMPRESSION: Unremarkable intraop study WSN: [id number] Ordering Physician: Niranjan Goodrich Dictated By: Evangelista Mercado MD Dictated Date/Time: 12/07/20 8:35 am Reviewed By: Evangelista Mercado MD Signed By: Evangelista Mercado MD Signed Date/Time: 12/07/20 8:35 am Transcribed By: KASIA Transcribed Date/Time: 12/07/20 8:34 am Vital Signs Most recent to oldest [Reference Range]: 1 2 3 Height 178 cm (12/08/20 7:50 AM) 178 cm (12/07/20 4:47 PM) 178 cm (12/07/20 11:58 AM) Weight 94.3 kg (12/07/20 6:25 AM) 94.3 kg (12/07/20 5:27 AM) Oxygen Saturation [94-100 %] 96 % (12/08/20 7:50 AM) 94 % (12/08/20 3:00 AM) 98 % (12/07/20 11:00 PM) Pulse Rate [55-90 bpm] 63 bpm (12/08/20 7:50 AM) 80 bpm (12/08/20 3:00 AM) 63 bpm (12/07/20 11:00 PM) Body Mass Index [18.5-24.99] 29.76 *H* (12/07/20 6:25 AM) 29.76 *H* (12/07/20 5:27 AM) Blood Pressure [90-138/55-84 mm Hg] 115/70mm Hg (12/08/20 7:50 AM) 112/56mm Hg (12/08/20 3:00 AM) 128/70mm Hg (12/07/20 11:00 PM) Respiratory Rate [16-30 br/min] 18 br/min (12/08/20 9:19 AM) 18 br/min (12/08/20 7:50 AM) 18 br/min (12/08/20 6:40 AM) Temperature [96.8-100.4 DegF] 97.3 DegF (12/08/20 7:50 AM) 97.3 DegF (12/08/20 3:00 AM) 97.6 DegF (12/07/20 11:00 PM) Liters per Minute 3 L/min (12/07/20 10:45 AM) 3 L/min (12/07/20 9:00 AM) Mode of Delivery (Oxygen) Room air (12/08/20 7:50 AM) Room air (12/08/20 3:00 AM) Room air (12/07/20 11:00 PM) Blood pressure sites Arm, right (12/08/20 7:50 AM) Arm, right (12/08/20 3:00 AM) Arm, right (12/07/20 11:00 PM) Temperature Route Oral (12/08/20 7:50 AM) Oral (12/08/20 3:00 AM) Oral (12/07/20 11:00 PM) Dry Weight 97.3 kg (12/07/20 5:27 AM) Social History Social History Type Response Smoking Status Never (less than 100 in lifetime) entered on: 12/07/20 Sex
--- OUTSIDE RECORDS SUMMARY | 2023-11-23 08:41 | XMS_ITS | Continuity of Care Document ---
Author Name Unknown Organization [facility] [address] Address [address] [place] [address]- Care Team Providers Care Solar Electric/Photovoltaic Installer Name Role Phone Rommel Figueroa MD Primary Care Physician En[place] [facility] [place] Date(s): 06/14/23 - 06/21/23 [facility] Adult [address] [place] [address]- Attending Physician: Rommel Figueroa MD Allergies, Adverse Reactions, Alerts No Known Allergies Immunizations Given and Recorded Vaccine Date Status Refusal Reason pneumococcal 23-valent vaccine 1 12/15/22 Given influenza virus vaccine, inactivated 09/27/22 Sharad rded influenza virus vaccine, inactivated 12/13/21 Give n influenza virus vaccine, inactivated 08/20/20 Give n [id number] 12y+ bivalent booster vax 09/27/22 Recorded SARS-CoV-2 mRNA ([id number]) vax 05/09/22 Recorded SARS-CoV-2 (COVID-19) mRNA BNT-162b2 vac 09/28/21 Recorded SARS-CoV-2 (COVID-19) mRNA BNT-162b2 vac 01/29/21 Given SARS-CoV-2 (COVID-19) mRNA BNT-162b2 vac 01/08/21 Given pneumococcal 13-valent vaccine 2 08/03/18 Given tetanus/diphtheria/pertussis, acel(Tdap) 10/30/14 Recorded 1Result Comment: [id number] 2Result Comment: [08/03/2018] [facility] [id number] Medications acetaminophen 325 mg oral tablet 650 [...] 3 Refills, Maintenance, 06/14/23 9:55:00 EDT, Tablet, [facility][id number], Partial fill upon patient request if the [...] Dry Weight Start Date: 06/14/23 Status: Ordered glipiZIDE 5 mg oral tablet, extended release 1 tablet = 5 mg, By Mouth, Daily, Increase in dose, # 90 tablet, 3 Refills, Maintenance, 06/14/23 9:53:00 EDT, ER Tablet, [facility] #[id number], Partial fill upon patient request if the prescription is for a schedule II opioid drug., 175.2, cm,... Start Date: 06/14/23 Status: Ordered hydrochlorothiazide 25 mg oral tablet 1, tablet, By Mouth, Daily, # 90 tablet, Refills 0, Maintenance, 03/29/23 7:38:00 EDT, Route to Pharmacy Electronically, [facility] #[id number], 175.2, cm, 03/14/23 9:18:00 EDT, Height, 96.2, kg, 06/22/21 5:33:00 EDT, Dry Weight Start Date: 03/29/23 Status: Ordered lisinopril 20 mg oral tablet 1, tablet, By Mouth, Daily, # 90 tablet, Refills 1, Tot. 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 Cough Confirmed Active Essential hypertension Confirmed Active Glaucoma Confirmed Active Gustatory rhinitis Confirmed Active Mixed hyperlipidemia Confirmed Active OA (osteoarthritis) of hip, right Confirmed Active Obese class I Confirmed Active Diabetes mellitus type 2 Confirmed Active 1Per chart review meeting GFR criteria Vital Signs Most recent to oldest [Reference Range]: 1 2 Height 175.2 cm (06/14/23 9:43 AM) 175.2 cm (06/14/23 9:38 AM) Weight 98.0 kg (06/14/23 9:38 AM) Oxygen Saturation [94-100 %] 97 % (06/14/23 9:38 AM) Pulse Rate [55-90 bpm] 54 bpm *L* (06/14/23 9:38 AM) Body Mass Index [18.5-24.99 kg/m2] 31.93 kg/m2 *>HHI* (06/14/23 9:38 AM) Blood Pressure [90-138/55-84 mm Hg] 157/ 70mm Hg *H* (06/14/23 9:43 AM) 166/89mm Hg *H* (06/14/23 9:38 AM) Mode of Delivery (Oxygen) Room air (06/14/23 9:38 AM) Blood pressure sites Arm, left (06/14/23 9:43 AM) Arm, left (06/14/23 9:38 AM) Weight Obtained Via Standing scale (06/14/23 9:38 AM) Social History Social History Type Response Smoking Status Never (less than 100 in lifetime) entered on: 12/07/20 Sex Note * Vivek Miliani: PERFORM, SIGN, VERIFY Event Display: Patient Education/Instruction Authored Date: [id number] [facility] *NAVEEN Lorenzana Clinical Summary Name JERALD GUEVARA Age 83 Years 1940 PCP Carolina LEIVA, Rommel Doshi PCP Visit Date 06/14/2023 09:15:00 Additional Instructions: Scheduled Appointments?? Future Appointments ?No Future Appointments Scheduled Follow-Up Instructions ?? Diagnosis Unspecified glaucoma; Mixed hyperlipidemia; Type 2 diabetes mellitus with hyperglycemia; Essential (primary) hypertension; Atherosclerotic heart disease of [place] coronary artery without angina pectoris Medications: Please continue your medications until treatment is completed or stopped by your provider. Discuss any questions related to medications with your provider. Medications to Continue Taking That Have Changed [facility][id number], [address] [place], [place] [id number], [phone] - Atorvastatin (atorvastatin 40 mg oral tablet) 1 tab(s) Oral Daily. Refills: 3. Next Dose: - GlipiZIDE (glipiZIDE 5 mg oral tablet, extended release) 1 tab(s) Oral Daily. Increase in dose. Refills: 3. Next Dose: Medications to Continue with No Changes These medications were not printed or sent to your pharmacy Acetaminophen (acetaminophen 325 mg oral tablet) 650 Milligram Oral every 6 hours. May take OTC, follow directions on bottle. Next Dose: apixaban (Eliquis 5 mg oral tablet) 1 tab(s) Oral twice a day. Next Dose: Aspirin (aspirin 81 mg oral delayed release tablet) 1 tab(s) Oral Daily. Next Dose: Brinzolamide Ophthalmic (Azopt 1% ophthalmic suspension) 1 Drops Both eyes twice a day. Next Dose: Hydrochlorothiazide (hydrochlorothiazide 25 mg oral tablet) 1 tab(s) Oral Daily. Refills: 0. Next Dose: Latanoprost Ophthalmic (Xelpros 0.005% ophthalmic emulsion) Next Dose: Lisinopril (lisinopril 20 mg oral tablet) 1 tab(s) Oral Daily. Refills: 1. Next Dose: Metformin (metFORMIN 500 mg oral tablet) 1 tab(s) Oral twice a day. Refills: 0. Next Dose: Miscellaneous Rx (FREESTYLE LANCETS 100) USE TO TEST TWICE DAILY. Refills: 0. Next Dose: Timolol Ophthalmic (Timolol 0.5% Ophth) 1 Drops Both eyes twice a day. Next Dose: Allergy Info:?? NKA Medications Given This Visit Future Orders ?No future orders Vital Signs Height 175.2 cm Weight 98.0 kg BMI 31.93 kg/m2 Blood Pressure 157 mm Hg/70 mm Hg Temperature Pulse Rate 54 bpm Respiratory Rate 02 Sat Mode of Delivery 97 %/Room air You can now view a summary of your hospital visit from the comfort of your home through a free online portal called [employer]. [employer] is a website that allows you to securely view your medical information including discharge summary, medications and follow-up visits. ??You can alsosend a secure electronic message to your doctor???s office to request appointments, renew medications or just ask a question. You can enroll at [email or web address] or register during your next office visit. Disclaimer:?? The information provided is of a general nature and is intended to be used in conjunction with the recommendations and advice of your health care practitioner. ??Every effort has been made to ensure that the information provided is accurate and complete at the time it is provided to you however, as your needs change, or, as new ??information becomes available, different or additional instructions may be required. If you have questions, please consult with your primary care provider or pharmacist, as appropriate. ??This information is not intended to serve as substitution for assessment and evaluation by a qualified health care provider. If you do not have a primary care provider, you may find a [facility] provider by calling [facility] Link at [phone]. For information about the plan of care including goals and instructions for your diagnosis, please see the patient education orders section of this document. Patient Education Materials?? The content of this educational material or handout may have been modified, supplemented, or adapted from its original content and format to support your individualized medical care. Patient Care team information Care Team Personnel Name: Rommel Figueroa MD Position: [facility] Physician - Primary Care Member Role: PCP Address: Address: [address] [place] [id number] Name: Daniela Rouse RN Position: S RN Member Role: Primary Care Nurse Name: Criss Perdomo RN Position: S RN Member Role: Primary Care Nurse Care Team Related Persons Name: TANNER BUTLER Address: [place] [address]
--- OUTSIDE RECORDS SUMMARY | 2023-11-23 08:41 | XMS_ITS | Continuity of Care Document ---
Author Name Unknown Organization [facility] Address [address] [place] [address]- Care Team Providers Care Millinery Copyist Name Role Phone Carolina LEIVA, Rommel Doshi Primary Care Physician [phone] Encounter [facility] [place] Date(s): 09/24/21 - 10/24/21 [facility] [place] Adult [address] [place] [address]- Allergies, Adverse Reactions, Alerts Substance Reaction Severity Status NKA Active Immunizations Given and Recorded Vaccine Date Status Refusal Reason SARS-CoV-2 (COVID-19) mRNA BNT-162b2 vac 01/29/21 Given SARS-CoV-2 (COVID-19) mRNA BNT-162b2 vac 01/08/21 Given influenza virus vaccine, inactivated 08/20/20 Give n pneumococcal 13-valent vaccine 1 08/03/18 Given tetanus/diphtheria/pertussis, acel(Tdap) 10/30/14 Recorded 1Result Comment: [08/03/2018] [facility] [id number] Medications acetaminophen 325 mg oral tablet 650 [...] 12/08/20 6:44:00 EST, Route to Pharmacy Electronically, [facility], Partial fill upon patient request [...] WITH BREAKFAST, # 30 tablet, 5 Refills, [facility] #[id number], 175.2, cm, 06/24/21 7:36:00 EDT, Height, 96.2, kg, 06/22/21 5:33:00 EDT, Dry Weight Start Date: 09/13/21 Status: Ordered hydrochlorothiazide 25 mg oral tablet 25 mg, 1, tablet, By Mouth, Daily, # 30 tablet, Refills 2, Tot. Refills 2, Maintenance, 09/06/21 4:56:00 EST, Route to Pharmacy Electronically, [facility][id number], Partial fill upon patient request if the prescription is for a schedule II opi... Start Date: 09/06/21 Status: Ordered lisinopril 20 mg oral tablet 20 mg, 1, tablet, By Mouth, Daily, # 90 tablet, Refills 1, Tot. Refills 1, Maintenance, 07/07/21 8:43:00 EDT, Route to Pharmacy Electronically, [facility] #[id number], Partial fill upon patient request if the [...] a day, # 180 tablet, 1 Refills, [id number], 175.2, cm,10/15/21 13:31:00 EST, Height, 96.2, kg, [...] fibrillation(Confirmed) Active Atherosclerotic heart diseas e of [place] coronary artery without angina pectoris(Confirmed) Active Cough(Confirmed) Active Essential hypertension(Confirmed) Active Glaucoma(Confirmed) Active Mixed hyperlipidemia(Confirmed) Active OA (osteoarthritis) of hip, right(Confirmed) Active Diabetes mellitus type 2(Confirmed) Active Social History Social History Type Response Smoking Status Never (less than 100 in lifetime) entered on: 12/07/20 Sex
--- OUTSIDE RECORDS SUMMARY | 2023-11-23 08:41 | XMS_ITS | Continuity of Care Document ---
Author Name Unknown Organization [facility] lt Address [address] [place] [address]- Care Team Providers Care Fuel Attendant Name Role Phone Rommel Figueroa MD Primary Care Physician [place] [facility] [id number] Date(s): 05/20/20 - 05/27/20 [facility] Adult [address] [place] [address]- [facility] Attending Physician: Rommel Figueroa MD Allergies, Adverse Reactions, Alerts Substance Reaction Severity Status NKA Active Immunizations Given and Recorded Vaccine Date Status Refusal Reason pneumococcal 13-valent vaccine 1 08/03/18 Given tetanus/diphtheria/pertussis, acel(Tdap) 10/30/14 Recorded 1Result Comment: [08/03/2018] [facility] [id number] Medications Aspirin Tablet 81, mg, By Mouth, Daily, 0, 2, 0, 2, 08/17/07 11:12:02, ADS OPPTHS, [id number] Start Date: 08/17/07 Stop Date: 11/15/07 Status: [...] Refills, Maintenance, 04/24/20 10:57:00 EDT, ER Tablet, [id number], 178, cm, 04/24/20 10:32:00 EDT, Height Start [...] tablet, 3 Refills, Maintenance, 04/24/20 10:57:00EDT, Tablet, [facility][id number], 178, cm, 04/24/20 10:32:00 EDT, Height Start [...] fibrillation(Confirmed) Active Atherosclerotic heart diseas e of [place] coronary artery without angina pectoris(Confirmed) Active Essential hypertension(Confirmed) Active Glaucoma(Confirmed) Active Mixed hyperlipidemia(Confirmed) Active Uncontrolled type 2 diabetes mellitus(Confirmed) Active Vital Signs Most recent to oldest [Reference Range]: 1 Height 178.00 cm (05/20/20 9:17 AM) Weight 93.1 kg (05/20/20 9:17 AM) Oxygen Saturation [94-100 %] 98 % (05/20/20 9:17 AM) Pulse Rate [55-90 bpm] 56 bpm (05/20/20 9:17 AM) Body Mass Index [18.5-24.99] 29.38 *H* (05/20/20 9:17 AM) Blood Pressure [90-138/55-84 mm Hg] 118/ 80mm Hg (05/20/20 9:17 AM) Temperature [96.8-100.4 DegF] 97.7 DegF (05/20/20 9:17 AM) Mode of Delivery (Oxygen) Room air (05/20/20 9:17 AM) Blood pressure sites Arm, left (05/20/20 9:17 AM) Temperature Route Oral (05/20/20 9:17 AM) Weight Obtained Via Standing scale (05/20/20 9:17 AM) Social History Social History Type Response Smoking Status Never smoker entered on: 11/15/16 Sex
--- OUTSIDE RECORDS SUMMARY | 2023-11-23 08:41 | XMS_ITS | Continuity of Care Document ---
Author Name Unknown Organization [facility] Address [address] [place] [address]- Care Team Providers Care Neurosurgery Spine Physician Name Role Phone Carolina LEIVA, Rommel Doshi Primary Care Physician Encounter [facility] Date(s): 06/16/20 - 07/16/20 [facility] [address] [place] [address]- [facility] Attending Physician: Saniya Dai Admitting Physician: AdmtrSaniya Referring Physician: Admtr, ArEstefani Allergies, Adverse Reactions, Alerts Substance Reaction Severity Status NKA Active Immunizations Given and Recorded Vaccine Date Status Refusal Reason pneumococcal 13-valent vaccine 1 08/03/18 Given tetanus/diphtheria/pertussis, acel(Tdap) 10/30/14 Recorded 1Result Comment: [08/03/2018] [facility] [id number] Medications Aspirin Tablet 81, mg, By Mouth, Daily, 0, 2, 0, 2, 08/17/07 11:12:02, ADS OPPTHS, [id number] Start Date: 08/17/07 Stop Date: 11/15/07 Status: [...] Refills, Maintenance, 04/24/20 10:57:00 EDT, ER Tablet, [facility] #[id number], 178, cm, 04/24/20 10:32:00 EDT, Height Start [...] tablet, 3 Refills, Maintenance, 04/24/20 10:57:00EDT, Tablet, [facility] #[id number], 178, cm, 04/24/20 10:32:00 EDT, Height Start [...] fibrillation(Confirmed) Active Atherosclerotic heart diseas e of [place] coronary artery without angina pectoris(Confirmed) Active Essential hypertension(Confirmed) Active Glaucoma(Confirmed) Active Mixed hyperlipidemia(Confirmed) Active Uncontrolled type 2 diabetes mellitus(Confirmed) Active Social History Social History Type Response Smoking Status Never smoker entered on: 11/15/16 Sex
--- OUTSIDE RECORDS SUMMARY | 2023-11-23 08:41 | XMS_ITS | Continuity of Care Document ---
Author Name Unknown Organization [facility] ter Address [address] [place] [id number]- Care Team Providers Care Water Analyst Name Role Phone Carolina LEIVA, Rommel Doshi Primary Care Physician [place] [facility] [place] 06/24/[address] [address]- Discharge Disposition: A-D/C Home Attending Physician: Niranjan Goodrich MD Admitting Physician: [...] tetanus/diphtheria/pertussis, acel(Tdap) 10/30/14 Recorded 1Result Comment: [08/03/2018] [facility] [id number] Medications acetaminophen 325 mg oral tablet 650 mg, By Mouth, Every 6 hours, May take OTC, follow directions on bottle, Refills 0, Maintenance,12/08/20 6:42:00 EST, Partial fill upon patient request if the prescription is for a schedule II opioid drug. Start Date: 12/08/20 Status: Ordered Acetaminophen Tablet 650 mg, Tablet, By Mouth, 06/24/21 4:00:00 EDT Start Date: 06/24/21 Stop Date: 06/24/21 Status: Completed apixaban 2.5 mg oral tablet 1 tablet [...] 12/08/20 6:44:00 EST, Route to Pharmacy Electronically, [facility], Partial fill upon patient request [...] WITH BREAKFAST, # 30 tablet, 2 Refills, Maintenance,[facility][id number], 178, cm, 06/08/21 8:06:00 EDT, Height, 97.3, kg, 12/07/20 5:27:00 EST,Dry Weight Start Date: 06/13/21 Status: Ordered hydrochlorothiazide 25 mg oral tablet 25 mg, 1, tablet, By Mouth, Daily, # 30 tablet, Refills 0, Maintenance, 02/01/18 13:19:27 EDT Start Date: 02/01/18 Status: Ordered HYDROmorphone 2 mg oral tablet See Instructions, PRN Pain , Mild, Take 1-2 tablets By Mouth Every 4 hours PRN pain, # 84 tablet, 0Refills, Acute 06/30/21 12:36:00 EDT, 06/23/21 12:35:00 EDT, Tablet, [facility], Partial fill upon patient request if the prescription i... Start Date: 06/23/21 Stop Date: 06/30/21 Status: Ordered lisinopril 20 mg oral tablet 20 mg, Tablet, By Mouth, Hold for: SBP less than 130, 06/24/21 9:00:00 EDT Start Date: 06/24/21 Stop Date: 06/24/21 Status: Completed lisinopril 20 mg oral tablet 20 mg, [...] tablet, 1 Refills, Maintenance, 04/24/21 11:53:00EDT, Tablet, [facility] #[id number], 178, cm, 01/18/21 8:54:00 EDT, Height, 97.3, [...] fibrillation(Confirmed) Active Atherosclerotic heart diseas e of [place] coronary artery without angina pectoris(Confirmed) Active Essential hypertension(Confirmed) Active Glaucoma(Confirmed) Active Mixed hyperlipidemia(Confirmed) Active OA (osteoarthritis) of hip, right(Confirmed) Active Diabetes mellitus type 2(Confirmed) Active Results Radiology Reports * Exam Date Time Procedure Performing Provider Status 06/22/21 10:36 PM Pelvis 1 or 2 Views Estuardo Roth; Auth (Verified) Notes: (Pelvis 1 or 2 Views) Reason For Exam: Postop Prosthesis;Postop Prosthesis RESULT: Pelvis 1 or 2 Views INDICATION: Reason: Postop Prosthesis; Clinical Question(s): Status of Hip Prosthesis; Special Instructions: LEFT Hip - Do today at 2200 TECHNIQUE: Single AP image. COMPARISON: Intraoperative examination same day.. FINDINGS: Satisfactory positioning of the components of the left hip replacement. There is no fracture. IMPRESSION: 1. Satisfactory initial postoperative appearance left hip replacement. 2. No fracture seen. WSN: [id number] Ordering Physician: Lisa Payton Dictated By: Camden Oakley MD Dictated Date/Time: 06/22/21 10:53 p Reviewed By: Camden Oakley MD Signed By: Camden Oakley MD Signed Date/Time: 06/22/21 10:53 pm Transcribed By: KAISA Transcribed Date/Time: 06/22/21 10:52 pm * Exam Date Time Procedure Performing Provider Status 06/22/21 8:41 AM Pelvis 1 or 2 Views Fabby Capone ; Auth (Verified) Notes: (Pelvis 1 or 2 Views) Reason For Exam: osteoarthritis left total hip replacement RESULT: Pelvis 1 or 2 Views Pelvis 1 or 2 Views Reason: osteoarthritis left total hip replacement COMPARISON: 12/07/2020 FINDINGS: Interval placement of a left total hip arthroplasty with well-aligned prosthetic. No evidence of periprosthetic fractures. Partially visualized total right hip arthroplasty appears well-aligned within the right acetabular fossa without evidence of periprosthetic fractures or hardware loosening. Normal visualized sacroiliac joints. Superficial soft tissue deformity over the left hip, likely from intraoperative exam. IMPRESSION: Well-aligned intervally placed left total hip arthroplasty. No evidence of periprosthetic fractures. I have personally reviewed the images and I agree with this report. WSN: [id number] Ordering Physician: Niranjan Goodrich Dictated By: Kirsty Washburn DO Dictated Date/Time: 06/22/21 11:05 a Reviewed By: Cruz Martinez MD Signed By: Cruz Martinez MD Signed Date/Time: 06/22/21 11:10 am Transcribed By: KASIA Transcribed Date/Time: 06/22/21 9:03 am Vital Signs Most recent to oldest [Reference Range]: 1 2 3 Height 175.2 cm (06/24/21 7:36 AM) 175.2 cm (06/24/21 5:06 AM) 175.2 cm (06/24/21 12:21 AM) Weight 96.2 kg (06/22/21 6:42 AM) 96.2 kg (06/22/21 5:30 AM) Oxygen Saturation [94-100 %] 97 % (06/24/21 7:36 AM) 97 % (06/24/21 5:06 AM) 98 % (06/24/21 12:21 AM) Pulse Rate [55-90 bpm] 77 bpm (06/24/21 7:36 AM) 77 bpm (06/24/21 5:06 AM) 85 bpm (06/24/21 12:21 AM) Body Mass Index [18.5-24.99] 31.34 *>HHI* (06/22/21 6:42 AM) 31.34 *>HHI* (06/22/21 5:30 AM) Blood Pressure [90-138/55-84 mm Hg] 128/60mm Hg (06/24/21 7:36 AM) 148/69mm Hg *H* (06/24/21 7:33 AM) 148/69mm Hg *H* (06/24/21 5:06 AM) Respiratory Rate [16-30 br/min] 19 br/min (06/24/21 7:36 AM) 20 br/min (06/24/21 5:06 AM) 18 br/min (06/24/21 5:00 AM) Temperature [96.8-100.4 DegF] 98.6 DegF (06/24/21 7:36 AM) 97.5 DegF (06/24/21 5:06 AM) 98.6 DegF (06/24/21 12:21 AM) Liters per Minute 2 L/min (06/22/21 12:00 PM) 2 L/min (06/22/21 11:45 AM) 2 L/min (06/22/21 11:30 AM) Mode of Delivery (Oxygen) Room air (06/24/21 7:36 AM) Room air (06/24/21 5:06 AM) Room air (06/24/21 12:21 AM) Blood pressure sites Arm, right (06/24/21 7:36 AM) Arm, right (06/23/21 4:58 PM) Arm, right (06/23/21 7:09 AM) Temperature Route Oral (06/24/21 7:36 AM) Oral (06/24/21 5:06 AM) Oral (06/24/21 12:21 AM) Dry Weight 96.2 kg (06/22/21 5:30 AM) Social History Social History Type Response Smoking Status Never (less than 100 in lifetime) entered on: 12/07/20 Sex
--- OUTSIDE RECORDS SUMMARY | 2023-11-23 08:41 | XMS_ITS | Continuity of Care Document ---
Author Name Unknown Organization [facility] Address [address] [place] [address]- Care Team Providers Care Haircutter Name Role Phone Carolina LEIVA, Rommel Doshi Primary Care Physician [place] [facility] [place] 12/07/20 - 01/06/[address] [address] Attending Physician: Not on Staff, Attending MD Admitting Physician: Not on Staff, Admitting MD Referring Physician: Not on Staff, Referring MD Allergies, Adverse Reactions, Alerts Substance Reaction Severity Status NKA Active Immunizations Given and Recorded Vaccine Date Status Refusal Reason influenza virus vaccine, inactivated 08/20/20 Give n pneumococcal 13-valent vaccine 1 08/03/18 Given tetanus/diphtheria/pertussis, acel(Tdap) 10/30/14 Recorded 1Result Comment: [08/03/2018] [facility] [id number] Medications acetaminophen 325 mg oral tablet 650 [...] 12/08/20 6:44:00 EST, Route to Pharmacy Electronically, [facility], Partial fill upon patient request [...] Refills, Maintenance, 11/09/20 7:56:00 EST, ER Tablet, [facility] #[id number], 178, cm, 11/02/20 8:16:00 EST, Height Start [...] tablet, 3 Refills, Maintenance, 04/24/20 10:57:00EDT, Tablet, [facility] #[id number], 178, cm, 04/24/20 10:32:00 EDT, Height Start [...] 0 Refills, Maintenance, 12/08/20 6:47:00 EST, Tablet, [facility], Partial fill upon patient requestif the prescription is for a schedule II opioid nae... Start Date: 12/08/20 Stop Date: 01/05/21 Status: Ordered Xelpros 0.005% ophthalmic emulsion Start Date: 12/07/20 Status: Ordered Problem List Condition Effective Dates Status Health Status Inform ant Atrial fibrillation(Confirmed) Active Atherosclerotic heart diseas e of [place] coronary artery without angina pectoris(Confirmed) Active Essential hypertension(Confirmed) Active Glaucoma(Confirmed) Active Mixed hyperlipidemia(Confirmed) Active OA (osteoarthritis) of hip, right(Confirmed) Active Diabetes mellitus type 2(Confirmed) Active Social History Social History Type Response Smoking Status Never (less than 100 in lifetime) entered on: 12/07/20 Sex
--- OUTSIDE RECORDS SUMMARY | 2023-11-23 08:41 | XMS_ITS | Continuity of Care Document ---
Author Name Unknown Organization [facility] ter Address [address] [place] [address]- Care Team Providers Care Restaurant Shift Leader Name Role Phone Carolina LEIVA, Rommel Doshi Primary Care Physician [place] [facility] [place] Date(s): 11/27/20 - 01/02/[address] [address] Attending Physician: Niranjan Goodrich MD Admitting Physician: Niranjan Goodrich MD Referring Physician: Niranjan Goodrich MD Allergies, Adverse Reactions, Alerts Substance Reaction Severity Status NKA Active Immunizations Given and Recorded Vaccine Date Status Refusal Reason influenza virus vaccine, inactivated 08/20/20 Give n pneumococcal 13-valent vaccine 1 08/03/18 Given tetanus/diphtheria/pertussis, acel(Tdap) 10/30/14 Recorded 1Result Comment: [08/03/2018] [facility] 6162-0164-93 Medications acetaminophen 325 mg oral tablet 650 [...] 12/08/20 6:44:00 EST, Route to Pharmacy Electronically, [facility], Partial fill upon patient request [...] Refills, Maintenance, 11/09/20 7:56:00 EST, ER Tablet, [facility] #[id number], 178, cm, 11/02/20 8:16:00 EST, Height Start [...] tablet, 3 Refills, Maintenance, 04/24/20 10:57:00EDT, Tablet, [facility][id number], 178, cm, 04/24/20 10:32:00 EDT, Height Start [...] 0 Refills, Maintenance, 12/08/20 6:47:00 EST, Tablet, [facility], Partial fill upon patient requestif the prescription is for a schedule II opioid nae... 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
--- OUTSIDE RECORDS SUMMARY | 2023-11-23 08:41 | XMS_ITS | Continuity of Care Document ---
Author Name Unknown Organization [facility] ter Address [address] [place] [address]- Care Team Providers Care Vp Software Support Name Role Phone Carolina LEIVA, Rommel Doshi Primary Care Physician [place] [facility] [place] 04/15/20 - 04/15/[address] [address]- [place] Encounter Diagnosis Hyperglycemia(Final) - 04/15/20 Discharge Disposition: A-D/C Home Attending Physician: Salome Olson DO Admitting Physician: Salome Olson DO Referring Physician: Not on Staff, Referring MD Allergies, Adverse Reactions, Alerts Substance Reaction Severity Status NKA Active Immunizations Given and Recorded Vaccine Date Status Refusal Reason pneumococcal 13-valent vaccine 1 08/03/18 Given tetanus/diphtheria/pertussis, acel(Tdap) 10/30/14 Recorded 1Result Comment: [08/03/2018] [facility] [id number] Medications Aspirin Tablet 81, mg, By Mouth, Daily, 0, 2, 0, 2, 08/17/07 11:12:02, ADS OPPTHS, 1.71150a+[id number] Start Date: 08/17/07 Stop Date: 11/15/07 Status: [...] 500 mg, By Mouth, Daily before dinner, with meals, # 30 tablet, 0 Refills, Maintenance, 04/15/20 21:26:00 EDT, Tablet, [facility] #[id number], 178, cm, 02/20/20 8:28:00 EDT, Height Start Date: 04/15/20 Status: Ordered metFORMIN 500 mg oral tablet [...] fibrillation(Confirmed) Active 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 Essential hypertension(Confirmed) Active Glaucoma(Confirmed) Active Mixed hyperlipidemia(Confirmed) Active Uncontrolled type 2 diabetes mellitus(Confirmed) Active Vital Signs Most recent to oldest [Reference Range]: 1 2 3 Oxygen Saturation [94-100 %] 100 % (04/15/20 8:52 PM) 98 % (04/15/20 8:00 PM) 99 % (04/15/20 4:51 PM) Pulse Rate [55-90 bpm] 63 bpm (04/15/20 8:00 PM) 82 bpm (04/15/20 4:51 PM) Blood Pressure [90-138/55-84 mm Hg] 130/65mm Hg (04/15/20 8:00 PM) 145/71mm Hg *H* (04/15/20 4:51 PM) Respiratory Rate [16-30 br/min] 18 br/min (04/15/20 8:00 PM) 18 br/min (04/15/20 4:51 PM) Temperature [96.8-100.4 DegF] 98.0 DegF (04/15/20 8:00 PM) 97.6 DegF (04/15/20 4:51 PM) Mode of Delivery (Oxygen) Room air (04/15/20 8:52 PM) Room air (04/15/20 8:00 PM) Room air (04/15/20 4:51 PM) Blood pressure sites Arm, left (04/15/20 8:00 PM) Arm, left (04/15/20 4:51 PM) Temperature Route Oral (04/15/20 8:00 PM) Oral (04/15/20 4:51 PM) Social History Social History Type Response Smoking Status Never smoker entered on: 11/15/16 Sex
--- OUTSIDE RECORDS SUMMARY | 2023-11-23 08:41 | XMS_ITS | Continuity of Care Document ---
Author Name Unknown Organization [facility] Address [address] [place] [address]- Care Team Providers Care Patient Support Assistant Name Role Phone Carolina LEIVA, Rommel Doshi Primary Care Physician [phone] Encounter [facility] [place] Date(s): 02/20/20 - 02/27/20 [facility] Adult [address] [place] [address]- [facility] Attending Physician: Rommel Figueroa MD Referring Physician: Niranjan Goodrich MD Allergies, Adverse Reactions, Alerts Substance Reaction Severity Status NKA Active Immunizations Given and Recorded Vaccine Date Status Refusal Reason pneumococcal 13-valent vaccine 1 08/03/18 Given tetanus/diphtheria/pertussis, acel(Tdap) 10/30/14 Recorded 1Result Comment: [08/03/2018] 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 Essential hypertension(Confirmed) Active Glaucoma(Confirmed) Active Mixed hyperlipidemia(Confirmed) Active Uncontrolled type 2 diabetes mellitus(Confirmed) Active Vital Signs Most recent to oldest [Reference Range]: 1 Height 178.00 cm (02/20/20 8:28 AM) Weight 98.3 kg (02/20/20 8:28 AM) Oxygen Saturation [94-100 %] 96 % (02/20/20 8:28 AM) Pulse Rate [55-90 bpm] 54 bpm *L* (02/20/20 8:28 AM) Body Mass Index [18.5-24.99] 31.03 *>HHI* (02/20/20 8:28 AM) Blood Pressure [90-138/55-84 mm Hg] 142/ 62mm Hg *H* (02/20/20 8:28 AM) Respiratory Rate [16-30 br/min] 12 br/mi n *L* (02/20/20 8:28 AM) Temperature [96.8-100.4 DegF] 97.8 DegF (02/20/20 8:28 AM) Mode of Delivery (Oxygen) Room air (02/20/20 8:28 AM) Blood pressure sites Arm, left (02/20/20 8:28 AM) Temperature Route Oral (02/20/20 8:28 AM) Weight Obtained Via Standing scale (02/20/20 8:28 AM) Social History Social History Type Response Smoking Status Never smoker entered on: 11/15/16 Sex
--- OUTSIDE RECORDS SUMMARY | 2023-11-23 08:41 | XMS_ITS | Continuity of Care Document ---
Author Name Unknown Organization [facility] Address [address] [place] [address]- Care Team Providers Care Dairy And Food Laboratory Assistant Name Role Phone Carolina LEIVA, Rommel Doshi Primary Care Physician En[place] [facility] [place] Date(s): 03/26/21 - 04/25/21 [facility] [address] [place] [address]- Allergies, Adverse Reactions, Alerts Substance Reaction Severity Status NKA Active Immunizations Given and Recorded Vaccine Date Status Refusal Reason SARS-CoV-2 (COVID-19) mRNA BNT-162b2 vac 01/29/21 Given SARS-CoV-2 (COVID-19) mRNA BNT-162b2 vac 01/08/21 Given influenza virus vaccine, inactivated 08/20/20 Give n pneumococcal 13-valent vaccine 1 08/03/18 Given tetanus/diphtheria/pertussis, acel(Tdap) 10/30/14 Recorded 1Result Comment: [08/03/2018] [facility] [id number] Medications acetaminophen 325 mg oral tablet 650 [...] 12/08/20 6:44:00 EST, Route to Pharmacy Electronically, [facility], Partial fill upon patient request [...] Refills, Maintenance, 01/12/21 16:30:00 EDT, ER Tablet, [facility][id number], 178, cm, 12/08/20 7:50:00 EST, Height, 97.3, [...] tablet, 1 Refills, Maintenance, 04/24/21 11:53:00EDT, Tablet, [facility]54925, 178, cm, 01/18/21 8:54:00 EDT, Height, 97.3, [...] 0 Refills, Maintenance, 12/08/20 6:47:00 EST, Tablet, [facility], Partial fill upon patient requestif the prescription is for a schedule II opioid nae... 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
--- OUTSIDE RECORDS SUMMARY | 2023-11-23 08:41 | XMS_ITS | Continuity of Care Document ---
Author Name Unknown Organization [facility] Address [address] [place] [address]- Care Team Providers Care Obstetrician And Gynaecologist Name Role Phone Rommel Figueroa MD Primary Care Physician [place] [facility] [id number] Date(s): 05/11/21 - 05/18/21 [facility] Adult [address] [place] [address]- Attending Physician: Rommel Figueroa MD Allergies, Adverse Reactions, Alerts Substance Reaction Severity Status NKA Active Immunizations Given and Recorded Vaccine Date Status Refusal Reason SARS-CoV-2 (COVID-19) mRNA BNT-162b2 vac 01/29/21 Given SARS-CoV-2 (COVID-19) mRNA BNT-162b2 vac 01/08/21 Given influenza virus vaccine, inactivated 08/20/20 Give n pneumococcal 13-valent vaccine 1 08/03/18 Given tetanus/diphtheria/pertussis, acel(Tdap) 10/30/14 Recorded 1Result Comment: [08/03/2018] [facility] [id number] Medications acetaminophen 325 mg oral tablet 650 [...] 12/08/20 6:44:00 EST, Route to Pharmacy Electronically, [facility], Partial fill upon patient request [...] MOUTH DAILY WITH BREAKFAST, # 30 tablet, 0 Refills, Maintenance,[facility][id number], 178, cm, 05/11/21 7:24:00 EDT, Height, 97.3, kg, 12/07/20 5:27:00 EST,Dry Weight Start Date: 05/17/21 Status: Ordered hydrochlorothiazide 25 mg oral tablet [...] tablet, 1 Refills, Maintenance, 04/24/21 11:53:00EDT, Tablet, [facility]37008, 178, cm, 01/18/21 8:54:00 EDT, Height, 97.3, [...] fibrillation(Confirmed) Active 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 Essential hypertension(Confirmed) Active Glaucoma(Confirmed) Active Mixed hyperlipidemia(Confirmed) Active OA (osteoarthritis) of hip, right(Confirmed) Active Diabetes mellitus type 2(Confirmed) Active Vital Signs Most recent to oldest [Reference Range]: 1 Height 178 cm (05/11/21 7:24 AM) Weight 99.8 kg (05/11/21 7:24 AM) Oxygen Saturation [94-100 %] 97 % (05/11/21 7:24 AM) Pulse Rate [55-90 bpm] 50 bpm *L* (05/11/21 7:24 AM) Body Mass Index [18.5-24.99] 31.5 *>HHI* (05/11/21 7:24 AM) Blood Pressure [90-138/55-84 mm Hg] 124/ 82mm Hg (05/11/21 7:24 AM) Temperature [96.8-100.4 DegF] 97.6 DegF (05/11/21 7:24 AM) Mode of Delivery (Oxygen) Room air (05/11/21 7:24 AM) Blood pressure sites Arm, left (05/11/21 7:24 AM) Temperature Route Oral (05/11/21 7:24 AM) Weight Obtained Via Standing scale (05/11/21 7:24 AM) Social History Social History Type Response Smoking Status Never (less than 100 in lifetime) entered on: 12/07/20 Sex
--- OUTSIDE RECORDS SUMMARY | 2023-11-23 08:41 | XMS_ITS | Continuity of Care Document ---
Author Name Unknown Organization [facility] Address [address] [place] [address]- Care Team Providers Care Director Speech And Hearing Name Role Phone Rommel Figueroa MD Primary Care Physician [phone] [place] [facility] [place]20/20 [facility] Adult [address] [place] [address]- [facility] Attending Physician: Rommel Figueroa MD Allergies, Adverse Reactions, Alerts Substance Reaction Severity Status NKA Active Immunizations Given and Recorded Vaccine Date Status Refusal Reason pneumococcal 13-valent vaccine 1 08/03/18 Given tetanus/diphtheria/pertussis, acel(Tdap) 10/30/14 Recorded 1Result Comment: [08/03/2018] 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
--- OUTSIDE RECORDS SUMMARY | 2023-11-23 08:42 | XMS_ITS | Continuity of Care Document ---
Author Name Unknown Organization [facility] ter Address [address] [place] [address]- Care Team Providers Care Production Underwriter Name Role Phone Caroilna LEIVA, Rommel Doshi Primary Care Physician En[place] [facility] [place] Date(s): 01/03/20 - 03/27/[address] [address]- [facility] Attending Physician: Niranjan Goodrich MD Referring Physician: Niranjan Goodrich MD Allergies, Adverse Reactions, Alerts Substance Reaction Severity Status NKA Active Immunizations Given and Recorded Vaccine Date Status Refusal Reason pneumococcal 13-valent vaccine 1 08/03/18 Given tetanus/diphtheria/pertussis, acel(Tdap) 10/30/14 Recorded 1Result Comment: [08/03/2018] [facility] [id number] Medications Aspirin Tablet 81, mg, By Mouth, Daily, 0, 2, 0, 2, 08/17/07 11:12:02, ADS OPPTHS, 1.11249s+006 Start Date: 08/17/07 Stop Date: 11/15/07 Status: [...] fibrillation(Confirmed) Active 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
--- OUTSIDE RECORDS SUMMARY | 2023-11-23 08:42 | XMS_ITS | Continuity of Care Document ---
Author Name Unknown Organization [facility] Cristian Salty lt Address [address] [place] [address]- Care Team Providers Care Livestock Nutrition Territory Manager Name Role Phone Carolina LEIVA, Rommel Doshi Primary Care Physician [place] [facility] [place] 11[place]21 [facility] Adult [address] [place] [address]- Allergies, Adverse Reactions, Alerts No Known Allergies Immunizations Given and Recorded Vaccine Date Status Refusal Reason SARS-CoV-2 (COVID-19) mRNA BNT-162b2 vac 01/29/21 Given SARS-CoV-2 (COVID-19) mRNA BNT-162b2 vac 01/08/21 Given influenza virus vaccine, inactivated 08/20/20 Give n pneumococcal 13-valent vaccine 1 08/03/18 Given tetanus/diphtheria/pertussis, acel(Tdap) 10/30/14 Recorded 1Result Comment: [08/03/2018] [facility] 1154-2744-51 Medications acetaminophen 325 mg oral tablet 650 [...] 12/08/20 6:44:00 EST, Route to Pharmacy Electronically, [facility], Partial fill upon patient request [...] WITH BREAKFAST, # 30 tablet, 5 Refills, [facility][id number], 175.2, cm, 06/24/21 7:36:00 EDT, Height, 96.2, kg, 06/22/21 5:33:00 EDT, Dry Weight Start Date: 09/13/21 Status: Ordered hydrochlorothiazide 25 mg oral tablet 25 mg, 1, tablet, By Mouth, Daily, # 30 tablet, Refills 2, Tot. Refills 2, Maintenance, 09/06/21 4:56:00 EST, Route to Pharmacy Electronically, [email or web address][id number], Partial fill upon patient request if the prescription is for a schedule II opi... Start Date: 09/06/21 Status: Ordered lisinopril 20 mg oral tablet 20 mg, 1, tablet, By Mouth, Daily, # 90 tablet, Refills 1, Tot. 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
--- OUTSIDE RECORDS SUMMARY | 2023-11-23 08:42 | XMS_ITS | Continuity of Care Document ---
Author Name Unknown Organization [facility] ter Address [address] [place] [address]- Care Team Providers Care International Logistics Coordinator Name Role Phone Rommel Figueroa MD Primary Care Physician Encounter [facility] Date(s): 10/25/19 - 10/25/[address] [address]- [facility] Attending Physician: Rommel Figueroa MD Allergies, Adverse Reactions, Alerts Substance Reaction Severity Status NKA Active Immunizations Given and Recorded Vaccine Date Status Refusal Reason pneumococcal 13-valent vaccine 1 08/03/18 Given tetanus/diphtheria/pertussis, acel(Tdap) 10/30/14 Recorded 1Result Comment: [08/03/2018] [facility] 5881-6351-59 Medications amLODIPine 5 mg oral tablet 5 mg, 1, tablet, By Mouth, Daily, # 30 tablet, Refills 5, Tot. 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
--- OUTSIDE RECORDS SUMMARY | 2023-11-23 08:42 | XMS_ITS | Continuity of Care Document ---
Author Name Unknown Organization [facility] Cristian Salty lt Address [address] [place] [address]- Care Team Providers Care Secondary School Teacher Librarian Name Role Phone Rommel Figueroa MD Primary Care Physician Encounter [facility] [place] Date(s): 12/15/22 - 12/22/22 [facility] Adult [address] [place] [address]- Attending Physician: Rommel Figueroa MD Allergies, Adverse Reactions, Alerts No Known Allergies Immunizations Given and Recorded Vaccine Date Status Refusal Reason pneumococcal 23-valent vaccine 1 12/15/22 Given influenza virus vaccine, inactivated 09/27/22 Sharad rded influenza virus vaccine, inactivated 12/13/21 Give n influenza virus vaccine, inactivated 08/20/20 Give n [id number] 12y+ bivalent booster vax 09/27/22 Recorded SARS-CoV-2 mRNA ([id number]) vax 05/09/22 Recorded SARS-CoV-2 (COVID-19) mRNA BNT-162b2 vac 09/28/21 Recorded SARS-CoV-2 (COVID-19) mRNA BNT-162b2 vac 01/29/21 Given SARS-CoV-2 (COVID-19) mRNA BNT-162b2 vac 01/08/21 Given pneumococcal 13-valent vaccine 2 08/03/18 Given tetanus/diphtheria/pertussis, acel(Tdap) 10/30/14 Recorded 1Result Comment: [id number] 2Result Comment: [08/03/2018] [facility] 5786-7289-37 Medications acetaminophen 325 mg oral tablet 650 [...] opioid drug. Start Date: 12/15/22 Status: Ordered Atorvastatin Tablet 80, mg, By [...] WITH BREAKFAST, # 30 tablet, 5 Refills, [facility] #[id number], 175.2, cm, 12/13/21 14:13:00 EST, Height, 96.2, kg, 06/22/21 5:33:00 EDT, Dry Weight Start Date: 03/11/22 Status: Ordered hydrochlorothiazide 25 mg oral tablet 1, tablet, By Mouth, Daily, # 90 tablet, Refills 3, Tot. Refills 3, 12/20/21 6:32:00 EST, Route to Pharmacy Electronically, [facility] #[id number], 175.2, cm, 12/13/21 14:13:00 EST, Height, 96.2, kg, 06/22/21 5:33:00 EDT, Dry Weight Start Date: 12/20/21 Status: Ordered ipratropium nasal 21 mcg/inh spray 1 sprays = 21 mcg, Nares, Both, 2 times a day, # 30 mL, 2 Refills, Acute 01/12/23 9:57:00 EDT, 12/15/22 9:56:00 EST, [facility] #[id number], Partial fill upon patient request if the prescriptionis for a schedule II opioid drug., 1 sprays Nares,... Start Date: 12/15/22 Stop Date: 01/12/23 Status: Ordered lisinopril 20 mg oral tablet 20 mg, 1, tablet, By Mouth, Daily, # 90 tablet, Refills 3, Tot. Refills 3, Maintenance, 12/20/21 6:32:00 EST, Route to Pharmacy Electronically, [facility] #[id number], Partial fill upon patient request if the prescription is for a schedule II opi... Start Date: 12/20/21 Status: Ordered metFORMIN 500 mg oral tablet 1 tablet, By Mouth, 2 times a day, # 180 tablet, 0 Refills, Maintenance, 10/16/22 19:36:00 EST, [facility] #[id number], 175.2, cm, 06/13/22 13:29:00 EDT, Height, 96.2, kg, 06/22/21 5:33:00 EDT, Dry Weight Start Date: 10/16/22 Status: Ordered Timolol 0.5% Ophth 1, drops, Eyes, Both, 2 times a day, Refills 0, Maintenance, 11/15/16 17:09:47 EST, Ophth Solution Start Date: 1/17/17 Status: Ordered Xelpros 0.005% ophthalmic emulsion Start Date: 12/07/20 Status: Ordered Problem List Condition Confirmation Course Effective Dates Status H ealth Status Informant Atrial fibrillation Confirmed Active Chronic kidney disease, stage 3a 1 Confirmed Active Atherosclerotic heart disease of [place] coronary artery without angina pectoris Confirmed Active Cough Confirmed Active Essential hypertension Confirmed Active Glaucoma Confirmed Active Gustatory rhinitis Confirmed Active Mixed hyperlipidemia Confirmed Active OA (osteoarthritis) of hip, right Confirmed Active Obese class I Confirmed Active Diabetes mellitus type 2 Confirmed Active 1Per chart review meeting GFR criteria Vital Signs Most recent to oldest [Reference Range]: 1 2 Height 175.2 cm (12/15/22 9:33 AM) 175.2 cm (12/15/22 9:27 AM) Weight 98.1 kg (12/15/22 9:27 AM) Oxygen Saturation [94-100 %] 99 % (12/15/22 9:27 AM) Pulse Rate [55-90 bpm] 60 bpm (12/15/22 9:27 AM) Body Mass Index [18.5-24.99 kg/m2] 31.96 kg/m2 *>HHI* (12/15/22 9:27 AM) Blood Pressure [90-138/55-84 mm Hg] 172/ 89mm Hg *H* (12/15/22 9:33 AM) 172/85mm Hg *H* (12/15/22 9:27 AM) Mode of Delivery (Oxygen) Room air (12/15/22 9:27 AM) Blood pressure sites Arm, left (12/15/22 9:33 AM) Arm, left (12/15/22 9:27 AM) Weight Obtained Via Standing scale (12/15/22 9:27 AM) Social History Social History Type Response Smoking Status Never (less than 100 in lifetime) entered on: 12/07/20 Sex Patient Care team information Care Team Personnel Name: Rommel Figueroa MD Position: [facility] Primary Care Physician Member Role: PCP Address: Address: [address] [place] [id number]- Name: Daniela Rouse RN Position: S RN Member Role: Primary Care Nurse Name: Criss Perdomo RN Position: S RN Member Role: Primary Care Nurse Care Team Related Persons Name: TANNER BUTLER Address: home [phone]
--- OUTSIDE RECORDS SUMMARY | 2023-11-23 08:42 | XMS_ITS | Continuity of Care Document ---
Author Name Unknown Organization [facility] ter Address [address] [place] [address]- Care Team Providers Care Data Warehousing Specialist Name Role Phone Carolina LEIVA, Rommel Doshi Primary Care Physician Encounter [facility] [place] Date(s): 06/03/21 - 07/03/[address] [address] Attending Physician: Admtr, Ar8 Admitting Physician: Admtr, [...] 1Result Comment: [08/03/2018] [facility] [id number] Medications acetaminophen 325 mg oral tablet 650 [...] 12/08/20 6:44:00 EST, Route to Pharmacy Electronically, [facility], Partial fill upon patient request if the [...] WITH BREAKFAST, # 30 tablet, 2 Refills, Maintenance,[facility] #[id number], 178, cm, 06/08/21 8:06:00 EDT, Height, 97.3, [...] tablet, 1 Refills, Maintenance, 04/24/21 11:53:00EDT, Tablet, [facility]15[facility], 178, cm, 01/18/21 8:54:00 EDT, Height, 97.3, [...] fibrillation(Confirmed) Active 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
--- OUTSIDE RECORDS SUMMARY | 2023-11-23 08:42 | XMS_ITS | Continuity of Care Document ---
Author Name Unknown Organization [facility] Salty lt Address [address] [place] [address]- Care Team Providers Care Tool Crib Clerk Name Role Phone Carolina LEIVA, Rommel Doshi Primary Care Physician [place] [facility] [place] [facility] Adult [address] [place] [address]- Allergies, Adverse Reactions, Alerts Substance Reaction Severity Status NKA Active Immunizations Given and Recorded Vaccine Date Status Refusal Reason SARS-CoV-2 (COVID-19) mRNA BNT-162b2 vac 01/29/21 Given SARS-CoV-2 (COVID-19) mRNA BNT-162b2 vac 01/08/21 Given influenza virus vaccine, inactivated 08/20/20 Give n pneumococcal 13-valent vaccine 1 08/03/18 Given tetanus/diphtheria/pertussis, acel(Tdap) 10/30/14 Recorded 1Result Comment: [08/03/2018] [facility] 6769-1153-75 Medications acetaminophen 325 mg oral tablet 650 [...] 12/08/20 6:44:00 EST, Route to Pharmacy Electronically, [facility], Partial fill upon patient request [...] Refills, Maintenance, 01/12/21 16:30:00 EDT, ER Tablet, [facility] #[id number], 178, cm, 12/08/20 7:50:00 EST, Height, 97.3, [...] tablet, 3 Refills, Maintenance, 04/24/20 10:57:00EDT, Tablet, [facility] #[id number], 178, cm, 04/24/20 10:32:00 EDT, Height Start [...] 0 Refills, Maintenance, 12/08/20 6:47:00 EST, Tablet, [facility], Partial fill upon patient requestif the [...]
--- OUTSIDE RECORDS SUMMARY | 2023-11-23 08:42 | XMS_ITS | Continuity of Care Document ---
Author Name Unknown Organization [facility] ter Address [address] [place] [address]- Care Team Providers Care Supervisor Small Appliance Assembly Name Role Phone Carolina LEIVA, Rommel Doshi Primary Care Physician Encounter [facility] Date(s): 12/03/20 - 01/02/[address] [address] Attending Physician: AdmtrSaniya Admitting Physician: Admtr, Romero8 Referring Physician: Admtr, Ar8 Allergies, Adverse Reactions, Alerts Substance Reaction Severity Status NKA Active Immunizations Given and Recorded Vaccine Date Status Refusal Reason influenza virus vaccine, inactivated 08/20/20 Give n pneumococcal 13-valent vaccine 1 08/03/18 Given tetanus/diphtheria/pertussis, acel(Tdap) 10/30/14 Recorded 1Result Comment: [08/03/2018] [facility] 4591-3004-13 Medications acetaminophen 325 mg oral tablet 650 [...] 12/08/20 6:44:00 EST, Route to Pharmacy Electronically, [facility], Partial fill upon patient request [...] Refills, Maintenance, 11/09/20 7:56:00 EST, ER Tablet, [facility] #[id number], 178, cm, 11/02/20 8:16:00 EST, Height Start [...] tablet, 3 Refills, Maintenance, 04/24/20 10:57:00EDT, Tablet, [facility] #[id number], 178, cm, 04/24/20 10:32:00 EDT, Height Start [...] 0 Refills, Maintenance, 12/08/20 6:47:00 EST, Tablet, [facility], Partial fill upon patient requestif the prescription is for a schedule II opioid nae... 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
--- NOTE | 2023-11-23 08:44 | MHC.OFFWIV ---
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 Reports that symptoms started 3 weeks ago. [facility] Medical History Diabetes Surgical History H/O heart artery stent Social History Alcohol intake: never Review of Systems Const All systems reviewed & are unremarkable except as noted in HPI and below Physical Exam Vital Signs: Last Vital Signs Temp 97.8 F 11/23/23 08:55 Pulse 74 11/23/23 08:55 BP 126/80 11/23/23 08:55 BMI result Body Mass Index 28.6 Const General: no acute distress HEENT Head: Yes normocephalic Ears: external ears normal and TM's normal bilaterally General nose exam: Normal external nose present, Abnormal mucous membranes and turbinates present boggy and erythematous and Nasal discharge present Face and sinus: Yes sinuses nontender Mouth: Normal oral and palatal mucosa present Resp Effort & Inspection: Actively coughing Auscultation: rhonchi throughout and wheezes scattered wheezes Cardio Rate: regular rate Rhythm: regular rhythm Assessment & Plan Assessment & Plan (1) Wheezing: Code(s): R06.2 - Wheezing Plan: - ?? CAP, ordered Chest XR - Empiri with Abx - Rest, hydrate (2) Cough in adult: Code(s): R05.9 - Cough, unspecified Plan: - ?? CAP, ordered Chest XR - Empiri with Abx - Rest, hydrate Plan Unable to obtain SP02 today. Pt hands cold. Orders: Orders XR chest 2V Today R05.9 - Cough, unspecified, R06.2 - Wheezing Medications: New azithromycin 500 mg PO DAILY 3 days 3 tabs 0RF R05.9 - Cough, unspecified, R06.2 - Wheezing amoxicillin 875 mg PO BID 5 days 10 tabs 0RF R05.9 - Cough, unspecified, R06.2 - Wheezing Coding Level of Care Code Est Pt Level 3 (48347) Diagnoses Wheezing R06.2 Cough in adult R05.9 Time Spent (min) 15
[2023-11-23 08:55] VITALS: BP 126/80; PULSE 74; TEMP 36.6; BMI 28.6
== END 2023-11-23 10:01 | disposition home or self-care (01) ==
PROVIDERS: PCP Family Medicine; Visit Provider Nurse Practitioner Family
DX: R06.2 Wheezing (principal); R05.9 Cough, unspecified
CPT/HCPCS: 99213

== ENCOUNTER 2023-11-23 09:19 | Outpatient (REF) | payer MEDICARE, SELFPAY ==
--- NOTE | ~2023-11-23 | XR_ITS ---
EXAMINATION: XR CHEST CLINICAL INFORMATION: Cough and wheezing for 2 weeks. COMPARISON: 10/04/2016 and 08/14/2007 TECHNIQUE: 2 views of the chest were obtained. FINDINGS: The lungs are moderately expanded. No focal consolidation. No pleural effusion. Pulmonary vasculature appears prominent. Cardiac silhouette is unchanged. XR/XR chest 2V IMPRESSION: No acute abnormality.
== END 2023-11-23 09:20 | disposition home or self-care (01) ==
LOC: HO.HMGCX 09:19
PROVIDERS: PCP Family Medicine; Visit Provider Nurse Practitioner Family
DX: R06.2 Wheezing (principal); R05.9 Cough, unspecified
CPT/HCPCS: 71046